=== PATIENT | female | born 1970 | race Caucasian/White ===

== ENCOUNTER 2017-09-09 19:43 | Emergency (ER) | payer SELFPAY ==
[~2017-09-09] VITALS: Ht 167.6 cm; Wt 81.6 kg
[~2017-09-09 19:43] MED LIST: AC500T PO; ACET650T52 PO; ACHD5005 PO; CYCL10TA9 PO; HYDR-3714 PO; PRD20T PO; PRED20TA PO; TRAM-21 PO; TRAM50TA2 PO; TRM50T PO; VALE1POW PO
--- OUTSIDE RECORDS SUMMARY | 2017-09-09 19:50 | XMS REPORT ---
Author Author EMMANUEL HALE [facility] Address [address] [place] [address] Care Team Providers Care Mail Order Clerk Name Role Phone EMMANUEL HALE Unavailable PROBLEMS Type Condition ICD9-CM Code ASU14-RH Code Onset Dates Condition Status SNOMED Code Problem Anxiety state, unspecified 300.00 Active 817432486 Problem Sciatica 724.3 Active 69390307 Problem Dysuria 788.1 Active 00120076 ALLERGIES Substance Reaction Event Type Date Status NSAIDS hives Non Drug Allergy May, Active SOCIAL HISTORY No smoking Hx information available PLAN OF CARE Activity Details Follow Up prn. if not improving with PCP or reg follow up Reason: VITAL SIGNS Height 66 in 2016-05-12 Weight 196.5 lbs 2016-05-12 Temperature 97.0 degrees Fahrenheit 2016-05-12 Heart Rate 82 bpm 2016-05-12 Respiratory Rate 20 2016-05-12 BMI 31.71 kg/m2 2016-05-12 Blood pressure systolic 110 mmHg 2016-05-12 Blood pressure diastolic 70 mmHg 2016-05-12 MEDICATIONS Medication Instructions Dosage Frequency Start Date End Date Duration Status Sudafed PE Maximum Strength 10 mg Orally every 4-6 hours as needed 1 tablet as needed May, Active Augmentin 875-125 MG Orally every 12 hrs 1 tablet 12h May,May 10 day(s) Active RESULTS No Results PROCEDURES Procedure Date Ordered Related Diagnosis Body Site Office Visit, Est Pt., Level 3 May 12, 2016 IMMUNIZATIONS No Known Immunizations
--- OUTSIDE RECORDS SUMMARY | 2017-09-09 19:50 | XMS REPORT ---
Author Author ALEXANDRO Wang [facility] Address [address] [place] [address] Care Team Providers Care Pipe Connector Name Role Phone [email or web address] ALEXANDRO Unavailable PROBLEMS Type Condition ICD9-CM Code OBM25-CK Code Onset Dates Condition Status SNOMED Code Problem Anxiety state, unspecified 300.00 Active 960056039 Problem Sciatica 724.3 Active 10070945 Problem Dysuria 788.1 Active 65660892 ALLERGIES Substance Reaction Event Type Date Status NSAIDS hives Non Drug Allergy Nov, Active ENCOUNTERS Encounter Location Date Diagnosis [facility] IN [facility] [id number] [place] [phone] Nov, Dysuria R30.0 and Acute cystitis N30.00 [facility] [id number] [place] [address] May, Acute non-recurrent maxillary sinusitis J01.00 [facility] [id number] [place] [phone] Jul, [facility] [id number] [place] [address] Jul, [facility] [id number] [place] [address] Apr, [facility] [id number] [place] [address] Apr, [facility] [id number] [place] [address] Oct, [facility] [id number] [place] [address] Oct, [facility] [address] [id number] [place] [address] Sep, [facility] [address] [id number] [place] [address] Sep, [facility] [place] [facility] [address] [id number] [place] [address] August, [facility] [address] [id number] [place] [address] August, [facility] [place] [facility] [address] [id number] [place] [address] Jul, [facility] [address] [id number] [place] [address] Jul, [facility] [address] [id number] [place] [address] Oct, [facility] [place] [facility] [address] [id number] [place] [address] Oct, [facility] [address] [id number] [place] [address] August, [facility] [address] [id number] [place] [address] August, [facility] [address] [id number] [place] [address] Jul, [facility] [place] [facility] [address] [id number] [place] [address] Jun, [facility] [place] [facility] [address] [id number] [place] [address] Jun, [facility] [place] [facility] [address] [id number] [place] [address] Jul, [facility] [place] [facility] [address] [id number] [place] [address] Mar, [facility] [place] [facility] [address] [id number] [place] [address] Feb, [facility] [address] [facility] [id number], [place] [address] Feb, [facility] [address] [facility] [id number], [place] [address] Feb, [facility] [address] [facility] [id number], [place] [address] Jan, [facility] [id number] [address] Jan, [facility] [address] [facility] [id number], [place] [address] Nov, [facility] [address] [id number], [place] [address] Sep, IMMUNIZATIONS No Known Immunizations SOCIAL HISTORY Never Assessed REASON FOR VISIT Possible UTI, Buring with urination and frequency. DENYS [place]. PLAN OF CARE Activity Details Follow Up prn Reason: VITAL SIGNS Height 66 in 2016-11-08 Weight 194.2 lbs 2016-11-08 Temperature 98 degrees Fahrenheit 2016-11-08 Heart Rate 92 bpm 2016-11-08 Respiratory Rate 18 2016-11-08 BMI 31.34 kg/m2 2016-11-08 Blood pressure systolic 132 mmHg 2016-11-08 Blood pressure diastolic 78 mmHg 2016-11-08 MEDICATIONS Medication Instructions Dosage Frequency Start Date End Date Duration Status Cipro 250 mg Orally every 12 hrs 1 tablet 12h Nov, Nov, 3 days Active RESULTS No Results PROCEDURES No Known procedures INSTRUCTIONS MEDICATIONS ADMINISTERED No Known Medications MEDICAL (GENERAL) HISTORY Type Description Date Surgical History Tubal Ligation 1999
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
--- NOTE | 2017-09-09 21:12 | ED Back Pain ---
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 DENIES RADIATION OR NUMBNESS/TINGLING Nursing Sepsis Screen: No Definite Risk (LAURO ESCOTO STUDENT) History of Present Illness Date Seen by Provider: Sep 09, 2017 Time Seen by Provider: 21:06 Initial Comments Patient to the emergency room with complaints of low back pain. 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 Said she took off 3 days this week and attempted to return back to work today and the pain was to intense and had to go home early. She denies any radiculopathy, numbness, tingling, saddle paresthesia, or loss of bowel or bladder and reports taking Tylenol for pain with minimal relief. Location: Lumbar Spine Timing/Duration: 3-4 Days Severity: Moderate Pain/Injury Location: Back Method of Injury: Other Modifying Factors: Improves With Cold Therapy (and heat), Improves With Immobilization (lifting); Worse With Jarring, Worse With Movement Associated Symptoms: denies symptoms, muscle spasms; No fever, No weakness, No numbness in legs/feet, No tingling in legs/feet, No sensory/motor loss; lower back pain; No loss of bladder control, No loss of bowel control (LAURO ESCOTO STUDENT) Associated Symptoms: muscle spasms (HADLEY MESSINA MD) Allergies and Home Medications Allergies Coded Allergies: aspirin (Verified Allergy, Severe, HIVES, 02/06/12) ibuprofen (Verified Allergy, Severe, HIVES, 02/06/12) cyclobenzaprine (Unverified Allergy, Intermediate, 09/01/14) naproxen sodium (Verified Allergy, Unknown, 09/01/14) Patient Home Medication List Home Medication List Reviewed: Yes (LAURO ESCOTO STUDENT) Constitutional: see HPI EENTM: no symptoms reported Respiratory: no symptoms reported Cardiovascular: no symptoms reported Gastrointestinal: no symptoms reported Genitourinary: no symptoms reported Musculoskeletal: see HPI, back pain, muscle pain, muscle twitching Skin: no symptoms reported Psychiatric/Neurological: No Symptoms Reported (LAURO ESCOTO STUDENT) All Other Systems Reviewed Negative Unless Noted: Yes (LAURO ESCOTO STUDENT) Negative Unless Noted: Yes (HADLEY MESSINA MD) Past Socnsva-Vinzjf-Tngbvf Hx Past Med/Social Hx: Reviewed Nursing Past Med/Soc Hx (LAURO ESCOTO) Past Med/Social Hx: Reviewed Nursing Past Med/Soc Hx (HADLEY MESSINA MD) Patient Social History Alcohol Use: Denies Use Recreational Drug Use: No Smoking Status: Current Everyday Smoker Recent Foreign Travel: No Contact w/Someone Who Travel: No Recent Infectious Disease Expo: No Physical Abuse: No Sexual Abuse: No (LAURO ESCOTO STUDENT) Immunizations Up To Date Tetanus Booster (TDap): Unknown Date of Influenza Vaccine: Jan 08, 2014 (LAURO ESCOTO) Seasonal Allergies Seasonal Allergies: No (LAURO ESCOTO STUDENT) Past Medical History Surgeries: Yes Parathyroidectomy, Tubal Ligation Respiratory: No Cardiac: No Neurological: No Reproductive Disorders: No 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 Gastrointestinal: No Musculoskeletal: No Endocrine: Yes (Gestational diabetes) Cancer: No Psychosocial: No Nursing Suicide Risk Score: 0 Integumentary: No Blood Disorders: No (LAURO ESCOTO STUDENT) Family Medical History Reviewed Nursing Family Hx (LAURO ESCOTO) Reviewed Nursing Family Hx (HADLEY MESSINA MD) Diabetes (LAURO ESCOTO STUDENT) Physical Exam Vital Signs Vital Signs - First Documented 09/09/17 20:17 Temp 98.1 Pulse 71 Resp 18 B/P (MAP) 136/68 (90) Pulse Ox 97 O2 Delivery Room Air (HADLEY MESSINA MD) Vital Signs Capillary Refill : Less Than 3 Seconds (LAURO ESCOTO STUDENT) General Appearance: No Apparent Distress, WD/WN HEENT: PERRL/EOMI, TMs Normal, Normal ENT Inspection, Pharynx Normal Neck: Full Range of Motion, Normal Inspection, Non Tender, Supple Cardiovascular: Regular Rate, Rhythm, No Edema, No Gallop, No JVD, No Murmur, Normal Peripheral Pulses Respiratory: Chest Non Tender, Lungs Clear, Normal Breath Sounds, No Accessory Muscle Use Peripheral Pulses: 2+ Dorsalis Pedis (R), 2+ Left Dors-Pedis (L), 2+ Radial Pulses (R), 2+ Radial Pulses (L) Gastrointestinal: Normal Bowel Sounds, No Organomegaly, No Pulsatile Mass, Non Tender, Soft Back: Normal Inspection, Decreased Range of Motion, Muscle Spasm, Vertebral Tenderness (lower vertebral tenderness on palpation.) Extremity: Normal Capillary Refill, Normal Inspection, Normal Range of Motion, Non Tender, No Calf Tenderness Neurologic/Psychiatric: Alert, Oriented x3, Normal Mood/Affect Skin: Normal Color, Warm/Dry Lymphatic: No Adenopathy (LAURO ESCOTO STUDENT) General Appearance: WD/WN, Mild Distress (low back pain) Cardiovascular: Regular Rate, Rhythm, No Murmur Respiratory: Lungs Clear, Normal Breath Sounds Back: Other (tender at the SI joint on the right with muscle spasms noted on the right side.) Neurologic/Psychiatric: No Motor Weakness, No Sensory Deficit (HADLEY MESSINA MD) Progress/Results/Core Measures Results/Orders My Orders Orders - HADLEY MESSINA MD Hydrocodone/Apap 7.5/325 Tab (Lortab 7. (09/09/17 21:45) Prednisone Tablet (Deltasone Tablet) (09/09/17 21:45) (HADLEY MESSINA MD) Medications Given in ED Current Medications Medications Dose Ordered Sig/Carlene Route Start Time Stop Time Status Last Admin Dose Admin Acetaminophen/ Hydrocodone Bitart 1 ea ONCE ONCE PO 09/09/17 21:45 09/09/17 21:46 DC 09/09/17 21:56 1 EA Prednisone 40 mg ONCE ONCE PO 09/09/17 21:45 09/09/17 21:46 DC 09/09/17 21:56 40 MG (HADLEY MESSINA MD) Vital Signs/I&O 09/09/17 20:17 Temp 98.1 Pulse 71 Resp 18 B/P (MAP) 136/68 (90) Pulse Ox 97 O2 Delivery Room Air (HADLEY MESSINA MD) Blood Pressure Mean: 90 Progress Progress Note : Progress Note I have seen and evaluated patient and agree with above except as indicated. I have reviewed and agree with the plan of care. Patient is here with low back pain mostly on the right but a little on the left. Apparently initial incident occurred 3 days ago and she took a few days off work. She went back to work today and was lifting again when the pain worsened and she had to leave and came here. Apparently, her work states that she left prior to doing the paperwork and so this will not be a Worker's Comp. case. Patient was given hydrocodone 7.5 and prednisone 40 mg by mouth. This did help out her pain. We did discuss zljq-ydl-cwtqkzj options. We will do brief prescription of both of the meds listed above and she will use lidocaine patches that she'll get over- the-counter. Discharged home with return precautions. Patient verbalize understanding instructions and agreement with plan. Further workup outpatient as needed and as indicated. (HADLEY MESSINA MD) Departure Impression Primary Impression: Back strain Qualified Codes: S39.012A - Strain of muscle, fascia and tendon of lower back , initial encounter Additional Impression: Back pain Qualified Codes: M54.5 - Low back pain Disposition: 01 HOME, SELF-CARE Condition: Improved Departure-Patient Inst. Decision time for Depature: 22:22 (LAURO ESCOTO STUDENT) Referrals: CELENA SIBLEY DO (PCP/Family) Primary Care Physician Patient Instructions: Lumbar Muscle Strain (DC) Add. Discharge Instructions: All discharge instructions reviewed with patient and/or family. Voiced understanding. Take medications as directed. Follow-up with your doctor early this week for recheck and further evaluation including possibility of imaging as indicated. You may use bnwd-rhc-csngazt lidocaine patch to area of concern as discussed. Abrasions of this include icy hot with lidocaine or salonpas lidocaine. Return for worse pain, fever, vomiting, weakness, breathing problems or other concerns as needed. Scripts Prednisone (Prednisone) 20 Mg Tab 40 MG PO DAILY, #12 TAB 0 Refills Prov: HADLEY MESSINA MD 09/09/17 Hydrocodone Bit/Acetaminophen (Hydrocodone/Acetaminophen 5/325mg Tablet) 1 Tab Tab 1-2 EACH PO Q6H PRN for PAIN-MODERATE, #12 TAB 0 Refills Prov: HADLEY MESSINA MD 09/09/17 Work/School Note: Work Release Form Date Seen in the Emergency Department: Sep 09, 2017 Return to Work: Sep 11, 2017 Restrictions: No Restrictions Copy Copies To 1: CELENA SIBLEY TRAVIS STUDENT Sep 09, 2017 21:12 HADLEY MESSINA MD Sep 09, 2017 22:28
[2017-09-09] MEDS ORDERED: HYDROcodone/APAP 7.5 MG/325 MG (LORTAB, LORCET PLUS) TABLET PO ONE (21:45)
[2017-09-09] MEDS ORDERED: predniSONE 20 MG TAB PO ONE (21:45)
[2017-09-09] MEDS ORDERED: PRD20T PO (22:46)
[2017-09-09] MEDS ORDERED: ACHD5005 PO (22:46)
[2017-09-09 22:57] VITALS: BP 136/68
== END 2017-09-09 22:56 | disposition home or self-care (01) ==
LOC: EDUNIT# 19:43 → ER 19:45
DX: S39.012A Strain of muscle, fascia and tendon of lower back, initial encounter (principal); F17.210 Nicotine dependence, cigarettes, uncomplicated; Z86.32 Personal history of gestational diabetes; Z98.51 Tubal ligation status; Z88.6 Allergy status to analgesic agent; Z88.8 Allergy status to other drugs, medicaments and biological substances; F17.200 Nicotine dependence, unspecified, uncomplicated; X50.0XXA Overexertion from strenuous movement or load, initial encounter; Y99.0 Civilian activity done for income or pay
CPT/HCPCS: 99284

== ENCOUNTER 2019-10-18 07:09 | Day surgery (SDC) | payer SELFPAY ==
[2019-10-18] VITALS (10 sets, daily range): BP systolic 126–145; BP diastolic 68–93
[~2019-10-18] VITALS: Ht 167 cm; Wt 9.1 kg
[2019-10-18] MEDS ORDERED: fentaNYL INJECTION 100 MCG/2 ML AMP ONE ×3 (07:23→11:27)
[2019-10-18] MEDS ORDERED: LACTATED RINGERS 1,000 ML IV ONE (07:23)
[2019-10-18] MEDS ORDERED: ONDANSETRON 4 MG/2 ML (SDV) Z0FRAN ONE ×2 (07:23→12:49)
[2019-10-18] MEDS ORDERED: fentaNYL INJECTION 100 MCG/2 ML AMP IVP STA (07:25)
[2019-10-18] MEDS ORDERED: LACTATED RINGERS 1,000 ML IV STA (07:25)
[2019-10-18] MEDS ORDERED: ONDANSETRON 4 MG/2 ML (SDV) Z0FRAN IVP ONE (07:30)
[2019-10-18 07:31] LABS: BASOPHILS % (AUTO) 0 % (0-10); EOSINOPHILS % (AUTO) 0 % (0-10); HEMATOCRIT 46 % (35-52); HEMOGLOBIN 15.9 G/DL (11.5-16.0); LYMPHOCYTES # (AUTO) 1.3 X 10^3 (1.0-4.0); LYMPHOCYTES % (AUTO) 6 % (12-44); MEAN CORPUSCULAR HEMOGLOBIN 31 PG (25-34); MEAN CORPUSCULAR HGB CONC 35 G/DL (32-36); MEAN CORPUSCULAR VOLUME 87 FL (80-99); MEAN PLATELET VOLUME 11.2 FL (7.4-10.4); MONOCYTES # (AUTO) 0.7 X 10^3 (0.0-1.0); MONOCYTES % (AUTO) 3 % (0-12); NEUTROPHILS # (AUTO) 18.7 X 10^3 (1.8-7.8); NEUTROPHILS % (AUTO) 91 % (42-75); PLATELET COUNT 201 10^3/uL (130-400); RED CELL DISTRIBUTION WIDTH 13.4 % (10.0-14.5); WHITE BLOOD COUNT 20.6 10^3/uL (4.3-11.0)
[2019-10-18 07:44] LABS: ALBUMIN 4.1 GM/DL (3.2-4.5); CHLORIDE 100 MMOL/L (98-107); POTASSIUM 3.8 MMOL/L (3.6-5.0); SODIUM 130 MMOL/L (135-145)
[2019-10-18 07:46] LABS: CALCIUM 10.2 MG/DL (8.5-10.1)
[2019-10-18 07:47] LABS: GLUCOSE 113 MG/DL (70-105)
[2019-10-18 07:48] LABS: BILIRUBIN,TOTAL 0.5 MG/DL (0.1-1.0); CARBON DIOXIDE 17 MMOL/L (21-32)
[2019-10-18 07:50] LABS: ALKALINE PHOSPHATASE 90 U/L (40-136)
[2019-10-18 07:51] LABS: CREATININE SERUM 0.84 MG/DL (0.60-1.30); GFR ESTIMATED > 60
[2019-10-18 07:52] LABS: BUN/CREATININE RATIO 11
[2019-10-18 07:53] LABS: ALANINE AMINOTRANSFERASE 15 U/L (0-55)
[2019-10-18 07:54] LABS: LIPASE < 4 U/L (8-78)
[2019-10-18 08:04] LABS: BAND NEUTROPHILS 8 %; BASOPHILS % (MANUAL) 0 %; EOSINOPHILS % (MANUAL) 0 %; LYMPHOCYTES % (MANUAL) 8 %; MONOCYTES % (MANUAL) 2 %; NEUTROPHILS % (MANUAL) 82 %; RBC MORPH NORMAL
[2019-10-18 08:26] LABS: BILIRUBIN,URINE NEGATIVE (NEGATIVE); CLARITY,URINE CLEAR; COLOR,URINE YELLOW; GLUCOSE, URINE (UA) NEGATIVE (NEGATIVE); KETONES,URINE TRACE (NEGATIVE); LEUKOCYTE ESTERASE ,URINE NEGATIVE (NEGATIVE); NITRITE,URINE NEGATIVE (NEGATIVE); PROTEIN,URINE 1+ (NEGATIVE)
--- NOTE | 2019-10-18 08:35 | Diagnostic Imaging Report ---
PROCEDURE: US Gallbladder. TECHNIQUE: Multiple real-time grayscale images were obtained over the right upper quadrant in various projections. INDICATION: Right upper quadrant pain. Liver is upper limits of normal in size at 18 cm. No discrete liver mass is identified. Portal vein is patent and shows normal direction of flow. Gallbladder appears to contain multiple stones. In addition, gallbladder wall is thickened 5 mm. No significant biliary ductal dilatation is seen. Pancreas was obscured by bowel gas. Aorta is non-aneurysmal proximally. Mid and distal aspect was not visualized. The upper IVC appears to be patent. Right kidney is without calculi or hydronephrosis. There is no ascites. IMPRESSION: 1. Cholelithiasis with gallbladder wall thickening, suspicious for acute cholecystitis. Dictated by: Dictated on workstation # [id number]
[2019-10-18 08:37] LABS: BACTERIA,URINE FEW /HPF; RBC,URINE 0-2 /HPF; WBC,URINE 0-2 /HPF
[2019-10-18] MEDS ORDERED: PIPERACILLIN SODIUM/TAZOBACTAM 4.5 GM in NS (IVPB) 100 ML IV ONE (08:45)
[2019-10-18] MEDS ORDERED: fentaNYL INJECTION 100 MCG/2 ML AMP IVP ONE (09:15)
--- NOTE | 2019-10-18 09:28 | ED Abdominal Pain ---
General Chief Complaint: Abdominal/GI Problems Stated Complaint: ABD PAIN Nursing Triage Note: PT CO OF ABD PAIN R UPPER ABD SINCE , PT STATES HAS HAD N/V/D Sepsis Screen: No Definite Risk Source of Information: Patient Exam Limitations: No Limitations History of Present Illness Date Seen by Provider: Oct 18, 2019 Time Seen by Provider: 07:20 Initial Comments Here with report of right upper quadrant abdominal pain for the last 2 days. Associated with nausea, vomiting and diarrhea. She is able to take in water but otherwise not eat. Denies fever but states that she feels poorly. Denies blood in her urine or stools. He denies upper respiratory symptoms. Timing/Duration: 2-3 Days Severity/Quality: Moderate, Severe, Aching Location: RUQ Radiation: Back Activities at Onset: None Modifying Factors: Worsens With Eating Associated Symptoms: Back Pain; No Chest Pain, No Diaphoresis, No Fever/Chills; Nausea/Vomiting; No Shortness of Air, No Weakness Allergies and Home Medications Allergies Coded Allergies: aspirin (Verified Allergy, Severe, HIVES, 02/06/12) ibuprofen (Verified Allergy, Severe, HIVES, 02/06/12) cyclobenzaprine (Unverified Allergy, Intermediate, 09/01/14) naproxen sodium (Verified Allergy, Unknown, 09/01/14) Home Medications No Active Prescriptions or Reported Meds Patient Home Medication List Home Medication List Reviewed: Yes Review of Systems Review of Systems Constitutional: see HPI; No chills (Heart regular), No fever EENTM: No Nose Congestion, No Throat Pain Respiratory: Denies Cough, Denies Shortness of Air Cardiovascular: Denies Chest Pain Gastrointestinal: Abdominal Pain, Diarrhea, Nausea; Denies Rectal Bleeding; Vomiting Genitourinary: Denies Frequency, Denies Hematuria, Denies Pain Musculoskeletal: no symptoms reported Skin: no symptoms reported All Other Systems Reviewed Negative Unless Noted: Yes Past Cqsmhem-Zabzrc-Zslagx Hx Past Med/Social Hx: Reviewed Nursing Past Med/Soc Hx Patient Social History Alcohol Use: Denies Use Recreational Drug Use: Yes (POT) Smoking Status: Current Everyday Smoker Type Used: Cigarettes Recent Foreign Travel: No Contact w/Someone Who Travel: No Recent Infectious Disease Expo: No Recent Hopitalizations: No Physical Abuse: No Sexual Abuse: No Immunizations Up To Date Tetanus Booster (TDap): Unknown Date of Influenza Vaccine: Jan 08, 2014 Seasonal Allergies Seasonal Allergies: No Past Medical History Surgeries: Yes Parathyroidectomy, Tubal Ligation Respiratory: No Cardiac: No Neurological: No : No Last Menstrual Period: Sep 27, 2019 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 oz. 81.265292tm; 32.00 BMI Method:Stated General Appearance: WD/WN, no apparent distress HEENT: PERRL/EOMI, pharynx normal Respiratory: lungs clear, normal breath sounds Cardiovascular: no murmur, tachycardia Gastrointestinal: soft; No distended; guarding; No rebound; tenderness (Right upper quadrant) Extremities: non-tender, normal inspection Back: normal inspection, no CVA tenderness, no vertebral tenderness Neurologic/Psychiatric: alert, oriented x 3 Skin: normal color, warm/dry Progress/Results/Core Measures Results/Orders Lab Results Laboratory Tests Test 10/18/19 07:15 10/18/19 07:20 Range/Units Urine Color YELLOW Urine Clarity CLEAR Urine pH 6.0 5-9 Urine Specific [place] <=1.005 1.016-1.022 Urine Protein 1+ H NEGATIVE Urine Glucose (UA) NEGATIVE NEGATIVE Urine Ketones TRACE H NEGATIVE Urine Nitrite NEGATIVE NEGATIVE Urine Bilirubin NEGATIVE NEGATIVE Urine Urobilinogen 0.2 < = 1.0 MG/DL Urine Leukocyte Esterase NEGATIVE NEGATIVE Urine RBC (Auto) 3+ H NEGATIVE Urine RBC 0-2 /HPF Urine WBC 0-2 /HPF Urine Squamous Epithelial Cells 5-10 /HPF Urine Crystals NONE /LPF Urine Bacteria FEW H /HPF Urine Casts NONE /LPF Urine Mucus NEGATIVE /LPF Urine Culture Indicated NO White Blood Count 20.6 H 4.3-11.0 10^3/uL Red Blood Count 5.22 4.35-5.85 10^6/uL Hemoglobin 15.9 11.5-16.0 G/DL Hematocrit 46 35-52 % Mean Corpuscular Volume 87 80-99 FL Mean Corpuscular Hemoglobin 31 25-34 PG Mean Corpuscular Hemoglobin Concent 35 32-36 G/DL Red Cell Distribution Width 13.4 10.0-14.5 % Platelet Count 201 130-400 10^3/uL Mean Platelet Volume 11.2 H 7.4-10.4 FL Neutrophils (%) (Auto) 91 H 42-75 % Lymphocytes (%) (Auto) 6 L 12-44 % Monocytes (%) (Auto) 3 0-12 % Eosinophils (%) (Auto) 0 0-10 % Basophils (%) (Auto) 0 0-10 % Neutrophils # (Auto) 18.7 H 1.8-7.8 X 10^3 Lymphocytes # (Auto) 1.3 1.0-4.0 X 10^3 Monocytes # (Auto) 0.7 0.0-1.0 X 10^3 Eosinophils # (Auto) 0.0 0.0-0.3 10^3/uL Basophils # (Auto) 0.0 0.0-0.1 10^3/uL Neutrophils % (Manual) 82 % Lymphocytes % (Manual) 8 % Monocytes % (Manual) 2 % Eosinophils % (Manual) 0 % Basophils % (Manual) 0 % Band Neutrophils 8 % Blood Morphology Comment NORMAL Sodium Level 130 L 135-145 MMOL/L Potassium Level 3.8 3.6-5.0 MMOL/L Chloride Level 100 98-107 MMOL/L Carbon Dioxide Level 17 L 21-32 MMOL/L Anion Gap 13 5-14 MMOL/L Blood Urea Nitrogen 9 7-18 MG/DL Creatinine 0.84 0.60-1.30 MG/DL Estimat Glomerular Filtration Rate > 60 BUN/Creatinine Ratio 11 Glucose Level 113 H 70-105 MG/DL Calcium Level 10.2 H 8.5-10.1 MG/DL Corrected Calcium 10.1 8.5-10.1 MG/DL Total Bilirubin 0.5 0.1-1.0 MG/DL Aspartate Amino Transf (AST/SGOT) 12 5-34 U/L Alanine Aminotransferase (ALT/SGPT) 15 0-55 U/L Alkaline Phosphatase 90 40-136 U/L C-Reactive Protein High Sensitivity 48.25 H 0.00-0.50 MG/DL Total Protein 8.0 6.4-8.2 GM/DL Albumin 4.1 3.2-4.5 GM/DL Lipase < 4 L 8-78 U/L My Orders Orders - HADLEY MESSINA MD Fentanyl Injection (Sublimaze Injection (10/18/19 07:23) Lactated Ringers (Lr 1000 Ml Iv Solution (10/18/19 07:23) Ondansetron Injection (Zofran Injectio (10/18/19 07:23) Ondansetron Injection (Zofran Injectio (10/18/19 07:30) Lactated Ringers (Lr 1000 Ml Iv Solution (10/18/19 07:25) Ed Iv/Invasive Line Start (10/18/19 07:25) Fentanyl Injection (Sublimaze Injection (10/18/19 07:25) Cbc With Automated Diff (10/18/19 07:25) Comprehensive Metabolic Panel (10/18/19 07:25) Hs C Reactive Protein (10/18/19 07:25) Lipase (10/18/19 07:25) Ua Culture If Indicated (10/18/19 07:25) Manual Differential (10/18/19 07:20) Us Gallbladder [id number] (10/18/19 07:53) Piperacillin Sodium/Tazobactam (Zosyn Vi (10/18/19 08:45) Fentanyl Injection (Sublimaze Injection (10/18/19 09:15) Medications Given in ED Current Medications Medications Dose Ordered Sig/Carlene Route Start Time Stop Time Status Last Admin Dose Admin Fentanyl Citrate 50 mcg ONCE ONCE IVP 10/18/19 09:15 10/18/19 09:16 DC 10/18/19 09:00 50 MCG Ondansetron HCl 4 mg ONCE ONCE IVP 10/18/19 07:30 10/18/19 07:31 DC 10/18/19 07:27 4 MG Piperacillin Sod/ Tazobactam Sod 4.5 gm/Sodium Chloride 100 ml @ 200 mls/hr ONCE ONCE IV 10/18/19 08:45 10/18/19 09:14 DC 10/18/19 08:49 200 MLS/HR Vital Signs/I&O 10/18/19 07:15 Temp 36.7 Pulse 97 Resp 18 B/P (MAP) 137/63 (87) Pulse Ox 97 Blood Pressure Mean: 87 Progress Progress Note : Progress Note Seen and evaluated. IV, labs, UA, LR 1 L bolus, fentanyl 75 g IV and Zofran 4 mg IV ordered. Monitor patient. Pain consistent with gallbladder concerns. Ultrasound gallbladder ordered. Monitor patient. 0845: Ultrasound concerning for acute cholecystitis. I did discuss the case with Dr. Pappas. He will see the patient in the ER. We will maintain nothing by mouth status and he will likely take her to surgery today. Zosyn 4.5 g IV ordered. All findings and concerns dis cussed with patient who agreed with plan. Diagnostic Imaging Diagonstic Imaging: Ultrasound Plain Films/CT/US/NM/MRI: abdomen Comments [facility], [place] NAME: CRUZ RIGGINS [facility] REC#: [id number] PT STATUS: REG ER : 1970 PHYSICIAN: HADLEY MESSINA MD ADMIT DATE: 10/18/19/ER Draft Date of Exam:10/18/19 US GALLBLADDER [id number] PROCEDURE: US Gallbladder. TECHNIQUE: Multiple real-time grayscale images were obtained over the right upper quadrant in various projections. INDICATION: Right upper quadrant pain. Liver is upper limits of normal in size at 18 cm. No discrete liver mass is identified. Portal vein is patent and shows normal direction of flow. Gallbladder appears to contain multiple stones. In addition, gallbladder wall is thickened 5 mm. No significant biliary ductal dilatation is seen. Pancreas was obscured by bowel gas. Aorta is non-aneurysmal proximally. Mid and distal aspect was not visualized. The upper IVC appears to be patent. Right kidney is without calculi or hydronephrosis. There is no ascites. IMPRESSION: 1. Cholelithiasis with gallbladder wall thickening, suspicious for acute cholecystitis. Dictated on workstation # [id number] Dict: 10/18/19 0830 Trans: 10/18/[address] [facility] [id number] Interpreted by: MURTAZA BUENO MD Electronically signed by: Departure Communication (Admissions) Time/Spoke to Admitting Phy: 08:45 Impression Primary Impression: Acute cholecystitis due to biliary calculus Disposition: ADMITTED INPATIENT Condition: Stable Admissions Decision to Admit Reason: Admit from ER (General) Decision to Admit/Date: Oct 18, 2019 Time/Decision to Admit Time: 08:45 Departure-Patient Inst. Referrals: CELENA SIBLEY DO (PCP/Family) Primary Care Physician Scripts No Active Prescriptions or Reported Meds HADLEY MESSINA MD Oct 18, 2019 09:27
--- NOTE | 2019-10-18 09:35 | NUR ---
DR AGUILAR HERE TO SEE PT
--- NOTE | 2019-10-18 10:27 | NUR ---
PT STATES HAS BEEN NOT HAD ANYTHING BY MOUTH SINCE 0500 THIS AM. STATES DRANK A CUP OF WATER
--- NOTE | 2019-10-18 10:44 | NUR ---
COVID SWAB COMPLETED
[2019-10-18] MEDS ORDERED: BUP/EPI 0.5% 1:200,000 (SENSORCAINE) 30 ML VIAL ONE (10:52)
[2019-10-18] MEDS ORDERED: IOPAMIDOL 61% 30 ML (ISOVUE 300) VIAL ONE (10:52)
[2019-10-18] MEDS ORDERED: ceFAZolin 2 GM IV Premixed 50 ML ONE (11:10)
--- NOTE | 2019-10-18 11:26 | Consultation - Surgery ---
History of Present Illness History of Present Illness Patient Consulted On(roldan/time) 10/18/19 11:20 Date Seen by Provider: Oct 18, 2019 Time Seen by Provider: 10:21 History of Present Illness Consult requested by Dr. Benitez for ruq abdominal pain, seen and evaluated in ED. Patient is a 49 year old female with sharp, achy pain in ruq. Rates pain at 10 at worse. Having nausea and vomiting. Has been going on for about 3 days. Unable to eat, no appetite. Food made her worse. Pain medication today, has made better. Tried smoking marijuana yesterday but just made her cough more. Had u/s done demonstrating gallstones and thickened wall. Denies fever sweats chills shortness of breath or chest pain. Allergies and Home Medications Allergies Coded Allergies: aspirin (Verified Allergy, Severe, HIVES, 02/06/12) ibuprofen (Verified Allergy, Severe, HIVES, 02/06/12) cyclobenzaprine (Unverified Allergy, Intermediate, 09/01/14) naproxen sodium (Verified Allergy, Unknown, 09/01/14) Home Medications No Active Prescriptions or Reported Meds Patient Home Medication List Home Medication List Reviewed: Yes Past Wawvzwk-Gbzqwd-Efgrul Hx Patient Social History Alcohol Use: Denies Use Recreational Drug Use: Yes (POT) Smoking Status: Current Everyday Smoker Type Used: Cigarettes Recent Foreign Travel: No Contact w/Someone Who Travel: No Recent Infectious Disease Expo: No Recent Hopitalizations: No Immunizations Up To Date Tetanus Booster (TDap): Unknown Date of Influenza Vaccine: Jan 08, 2014 Seasonal Allergies Seasonal Allergies: No Surgeries History of Surgeries: Yes Surgeries: Parathyroidectomy, Tubal Ligation Respiratory History of Respiratory Disorde: No Cardiovascular History of Cardiac Disorders: No Neurological History of Neurological Disord: No Reproductive System : No Hx 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 Gastrointestinal History of Gastrointestinal Di: No Musculoskeletal History of Musculoskeletal Dis: No Endocrine History of Endocrine Disorders: Yes (Gestational diabetes) Cancer History of Cancer: No Psychosocial History of Psychiatric Problem: No Integumentary History of Skin or Integumenta: No Blood Transfusions History of Blood Disorders: No Reviewed Nursing Assessment Reviewed/Agree w Nursing PMH: Yes Family Medical History Significant Family History: No Pertinent Family Hx, Diabetes Review of Systems-General Constitutional: No fever, No weakness EENTM: No hearing loss, No ear pain Respiratory: cough; No hemoptysis, No short of breath Cardiovascular: No chest pain, No edema, No palpitations Gastrointestinal: RUQ, abdominal pain (RUQ), nausea, vomiting Genitourinary: No decreased output, No discharge Musculoskeletal: No back pain, No joint pain Skin: No change in color, No change in hair/nails Psychiatric/Neurological: Denies Anxiety, Denies Depressed All Other Systems Reviewed Negative Unless Noted: Yes (Negative excepted noted.) Physical Exam-General Problems Physical Exam Vital Signs Vital Signs - First Documented 10/18/19 07:15 Temp 36.7 Pulse 97 Resp 18 B/P (MAP) 137/63 (87) Pulse Ox 97 Capillary Refill : Less Than 3 Seconds General Appearance: no apparent distress, obese HEENT: PERRL/EOMI, normal ENT inspection Neck: non-tender, supple, normal inspection Respiratory: chest non-tender, no respiratory distress, no accessory muscle use Cardiovascular: regular rate, rhythm Gastrointestinal: soft; No guarding, No rebound; tenderness (ruq) Rectal: deferred Back: no CVA tenderness, no vertebral tenderness Extremities: normal range of motion, non-tender, normal inspection, no pedal edema Neurologic/Psychiatric: nicker and breaker II-XII nml as tested, no motor/sensory deficits, normal mood/affect, oriented x 3 Skin: normal color, warm/dry Lymphatic: no adenopathy Data Review Labs Laboratory Tests 10/18/19 07:15: Urine Color YELLOW, Urine Clarity CLEAR, Urine pH 6.0, Urine Specific [place] <=1.005, Urine Protein 1+H, Urine Glucose (UA) NEGATIVE, Urine Ketones TRACEH, Urine Nitrite NEGATIVE, Urine Bilirubin NEGATIVE, Urine Urobilinogen 0.2, Urine Leukocyte Esterase NEGATIVE, Urine RBC (Auto) 3+H, Urine RBC 0-2, Urine WBC 0-2, Urine Squamous Epithelial Cells 5-10, Urine Crystals NONE, Urine Bacteria FEWH, Urine Casts NONE, Urine Mucus NEGATIVE, Urine Culture Indicated NO 10/18/19 07:20: White Blood Count 20.6H, Red Blood Count 5.22, Hemoglobin 15.9, Hematocrit 46, Mean Corpuscular Volume 87, Mean Corpuscular Hemoglobin 31, Mean Corpuscular Hemoglobin Concent 35, Red Cell Distribution Width 13.4, Platelet Count 201, Mean Platelet Volume 11.2H, Neutrophils (%) (Auto) 91H, Lymphocytes (%) (Auto) 6L, Monocytes (%) (Auto) 3, Eosinophils (%) (Auto) 0, Basophils (%) (Auto) 0, Neutrophils # (Auto) 18.7H, Lymphocytes # (Auto) 1.3, Monocytes # (Auto) 0.7, Eosinophils # (Auto) 0.0, Basophils # (Auto) 0.0, Neutrophils % (Manual) 82, Lymphocytes % (Manual) 8, Monocytes % (Manual) 2, Eosinophils % (Manual) 0, Basophils % (Manual) 0, Band Neutrophils 8, Blood Morphology Comment NORMAL, Sodium Level 130L, Potassium Level 3.8, Chloride Level 100, Carbon Dioxide Level 17L, Anion Gap 13, Blood Urea Nitrogen 9, Creatinine 0.84, Estimat Glomerular Filtration Rate > 60, BUN/Creatinine Ratio 11, Glucose Level 113H, Calcium Level 10.2H, Corrected Calcium 10.1, Total Bilirubin 0.5, Aspartate Amino Transf (AST/SGOT) 12, Alanine Aminotransferase (ALT/SGPT) 15, Alkaline Phosphatase 90, C-Reactive Protein High Sensitivity 48.25H, Total Protein 8.0, Albumin 4.1, Lipase < 4L 10/18/19 10:44: Assessment/Plan Assessment/Plan Assessment/Plan ruq abdominal pain nausea vomiting cholelithiasis cholecystitis patient discussed u/s results and would recommend laparoscopic cholecystectomy with IOC all other indicated procedures she understands risks and benefits and wishes to proceed to or NPO IV hydration AUGUSTIN AGUILAR DO Oct 18, 2019 11:26
[2019-10-18] MEDS ORDERED: MIDAZOLAM 2 MG/2 ML (VERSED) VIAL ONE (11:27)
[2019-10-18] MEDS: LACTATED RINGERS 1,000 ML IV PRN ×2 (11:29→13:10)
[2019-10-18] MEDS ORDERED: fentaNYL INJECTION 100 MCG/2 ML AMP IV ONE (11:30)
--- OUTSIDE RECORDS SUMMARY | 2019-10-18 11:37 | XMS REPORT ---
Author Author Georgie SALMON Organization [facility] Address [address] [place] [address] Care Team Providers Care Contract Project Manager Name Role Phone FABIOLA SALMON Unavailable PROBLEMS Type Condition ICD9-CM Code [id number] Code Onset Dates Condition S tatus SNOMED Code Problem Acute constipation K59.00 Active 1 [id number] ALLERGIES No Information ENCOUNTERS Encounter Location Date Diagnosis [facility] [address] [facility] [place] [id number] [address] [place] [id number] Feb, Acute constipation K59.00 [facility] [address] [facility] [place] [id number] [address] [place] [id number] Sep, Strain of lumbar region, ini tial encounter S39.012A [facility] [address] [facility] [place] [id number] [address] [place] [phone] Nov, Dysuria R30.0 and Acute cyst itis N30.00 [facility] [address] [facility] [place] [id number] [address] [place] [id number] May, Acute non-recurrent maxillar y sinusitis J01.00 [facility] [address] [facility] [place] [id number] [address] [place] [id number] Jul, [facility] [address] [facility] [place] [id number] [address] [place] [phone] Jul, [facility] [address] [facility] [place] [id number] [address] [place] [phone] Apr, [facility] [address] [facility] [place] [id number] [address] [place] [id number] Apr, [facility] [address] [facility] [place] [id number] [address] [place] [phone] Oct, [facility] [address] [id number] [address] [place] [address], [place] [address] Oct, [facility] [address] [id number] [address] [place] [address], [place] [address] Sep, [facility] [address] [id number] [address] [place] [address], [place] [id number] Sep, [facility] [address] [id number] [address] [place] [address], [place] [id number] August, [facility] [address] [id number] [address] [place] [address], [place] [address] August, [facility] [address] [id number] [address] [place] [address], [place] [address] Jul, [facility] [address] [id number] [address] [place] [address], [place] [address] Jul, [facility] [address] [id number] [address] [place] [address], [place] [address] Oct, [facility] [address] [id number] [address] [place] [address], [place] [address] Oct, [facility] [address] [id number] [address] [place] [address], [place] [address] August, [facility] [address] [id number] [address] [place] [address], [place] [address] August, [facility] [address] [id number] [address] [place] [address], [place] [address] Jul, [facility] [address] [id number] [address] [place] [address], [place] [address] Jun, [facility] [address] [id number] [address] [place] [address], [place] [address] Jun, [facility] [address] [id number] [address] [place] [address], [place] [address] Jul, [facility] [address] [id number] [address] [place] [phone] Mar, [facility] [address] [id number] [address] [place] [id number] Feb, [facility] [address] [id number] [address] [place] [phone] Feb, [facility] [address] [id number] [address] [place] [id number] Feb, [facility] [address] [id number] [address] [place] [phone] Jan, [facility] [address] [id number] [address] [place] [phone] Jan, [facility] [address] [id number] [address] [place] [phone] Nov, [facility] [address] [id number] [address] [place] [phone] Sep, IMMUNIZATIONS No Known Immunizations SOCIAL HISTORY Never Assessed REASON FOR VISIT PLAN OF CARE VITAL SIGNS MEDICATIONS No Known Medications RESULTS No Results PROCEDURES No Known procedures INSTRUCTIONS MEDICATIONS ADMINISTERED No Known Medications MEDICAL (GENERAL) HISTORY Type Description Date Surgical History Tubal Ligation 1999
--- OUTSIDE RECORDS SUMMARY | 2019-10-18 11:37 | XMS REPORT ---
Author Author Georgie SALMON Organization [facility] Address [address] [place] [address] Care Team Providers Care Wellness Director Name Role Phone FABIOLA SALMON Unavailable PROBLEMS Type Condition ICD9-CM Code [id number] Code Onset Dates Condition S tatus SNOMED Code Problem Acute constipation K59.00 Active 1 [id number] ALLERGIES No Information ENCOUNTERS Encounter Location Date Diagnosis [facility] [address] [facility] [id number] [address] [place] [address] Feb, Acute constipation K59.00 [facility] [address] [place] [address] Sep, Strain of lumbar region, initial encount er S39.012A [facility] [address] [place] [id number] [address] [place] [address] Nov, Dysuria R30.0 and Acute cyst itis N30.00 [facility] [address] [address] May, Acute non-recurrent maxillary sinusitis J01.00 [place] [address] [address] Jul, [facility] [address] [address] Jul, [place] [address] [address] Apr, [facility] [address] [address] Apr, [facility] [address] [address] Oct, [facility] [address] [id number] [place] [address] Oct, [facility] [address] [id number] [place] [address] Sep, [facility] [address] [id number] [place] [address] Sep, [facility] [address] [id number] [place] [address] August, [facility] [address] [id number] [place] [address] August, [facility] [address] [id number] [place] [address] Jul, [facility] [address] [id number] [place] [address] Jul, [facility] [address] [id number] [place] [address] Oct, [facility] [address] [id number] [place] [address] Oct, [facility] [address] [id number] [place] [address] August, [facility] [address] [id number] [place] [address] August, [facility] [address] [id number] [place] [address] Jul, [facility] [address] [id number] [place] [address] Jun, [facility] [address] [id number] [place] [address] Jun, [facility] [address] [id number] [place] [address] Jul, [facility] [address] [id number] [place] [address] Mar, [facility] [address] [id number] [place] [address] Feb, [facility] [address] [id number] [place] [address] Feb, [facility] [address] [id number] [place] [address] Feb, [facility] [address] [id number] [place] [address] Jan, [facility] [address] [place] [id number] [place] [address] Jan, [facility] [address] [id number] [place] [address] Nov, [facility] [address] [id number] [place] [address] Sep, IMMUNIZATIONS No Known Immunizations SOCIAL HISTORY Never Assessed REASON FOR VISIT PLAN OF CARE VITAL SIGNS MEDICATIONS No Known Medications RESULTS No Results PROCEDURES No Known procedures INSTRUCTIONS MEDICATIONS ADMINISTERED No Known Medications MEDICAL (GENERAL) HISTORY Type Description Date Surgical History Tubal Ligation 1999
--- OUTSIDE RECORDS SUMMARY | 2019-10-18 11:37 | XMS REPORT ---
Author Author Georgie NICOLE Organization [facility] Address [address] [place] [address] Care Team Providers Care Channel Supervisor Name Role Phone DEBORAH NICOLE Unavailable PROBLEMS Unknown Problems ALLERGIES Substance Reaction Event Type Date Status NSAIDS hives Non Drug Allergy Sep, Active ENCOUNTERS Encounter Location Date Diagnosis [facility] [address] [facility] [id number] [address] [place] [address] Sep, Strain of lumbar region, ini tial encounter S39.012A [facility] [address] [facility] [id number] [address] [place] [address] Nov, Dysuria R30.0 and Acute cyst itis N30.00 [facility] [address] [facility] [id number] [address] [place] [address] May, Acute non-recurrent maxillar y sinusitis J01.00 [facility] [address] [facility] [id number] [address] [place] [address] Jul, [facility] [address] [facility] [id number] [address] [place] [address] Jul, [facility] [address] [facility] [id number] [address] [place] [address] Apr, [facility] [address] [facility] [id number] [address] [place] [address] Apr, [facility] [address] [facility] [id number] [address] [place] [address] Oct, [facility] [address] [facility] [id number] [address] [place] [address] Oct, [facility] [address] [id number] [address] [place] [address], [place] [address] Sep, [facility] [address] [id number] [address] [place] [address], [place] [address] Sep, [facility] [address] [id number] [address] [place] [address], [place] [address] August, [facility] [address] [id number] [address] [place] [address], [place] [address] August, [facility] [address] [id number] [address] [place] [address], [place] [address] Jul, [facility] [address] [id number] [address] [place] [address], [place] [address] Jul, [facility] [address] [id number] [address] [place] [address], [place] [address] Oct, [facility] [address] [id number] [address] [place] [address], [place] [address] Oct, [facility] [address] [id number] [address] [place] [address], [place] [address] August, [facility] [address] [id number] [address] [place] [address], [place] [address] August, [facility] [address] [id number] [address] [place] [address], [place] [address] Jul, [facility] [address] [id number] [address] [place] [address], [place] [address] Jun, [facility] [address] [id number] [address] [place] [address], [place] [address] Jun, [facility] [address] [id number] [address] [place] [address], [place] [address] Jul, [facility] [address] [id number] [address] [place] [address], [place] [address] Mar, [facility] [address] [id number] [address] [place] [address], [place] [address] Feb, [facility] [address] [id number] [address] [place] [address] Feb, [facility] [address] [facility] [id number] [address] [place] [address] Feb, [facility] [address] [facility] [id number] [address] [place] [address] Jan, [facility] [address] [facility] [id number] [address] [place] [address] Jan, [facility] [address] [facility] [id number] [address] [place] [address] Nov, [facility] [address] [facility] [id number] [address] [place] [address] Sep, IMMUNIZATIONS No Known Immunizations SOCIAL HISTORY Never Assessed REASON FOR VISIT ER f/u, PT reports she is here for the follow up and regarding getting back to [facility]. -Nba MCFARLANE , PHQ2, AUDIT C PLAN OF CARE Activity Details Follow Up prn Reason: VITAL SIGNS Height 66 in 2017-09-12 Weight 193.0 lbs 2017-09-12 Temperature 98.3 degrees Fahrenheit 2017-09-12 Heart Rate 81 bpm 2017-09-12 Respiratory Rate 20 2017-09-12 BMI 31.15 kg/m2 2017-09-12 Blood pressure systolic 130 mmHg 2017-09-12 Blood pressure diastolic 70 mmHg 2017-09-12 MEDICATIONS Medication Instructions Dosage Frequency Start Date End Date Duration S tatus Hydrocodone Bitartrate A ctive Cyclobenzaprine HCl 10 mg Orally 2 times a day 1 tablet as needed 1 2h Sep, Sep, 10 days Active PredniSONE 20 MG 2 tabs 3 days 1 tab 3 days 11 J 2017 6 days Active RESULTS No Results PROCEDURES No Known procedures INSTRUCTIONS MEDICATIONS ADMINISTERED No Known Medications MEDICAL (GENERAL) HISTORY Type Description Date Surgical History Tubal Ligation 1999
--- OUTSIDE RECORDS SUMMARY | 2019-10-18 11:37 | XMS REPORT ---
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 [employer] [facility] Address [address] [address] Care Team Providers Care Manager Qa Name Role Phone CELENA SIBLEY Unavailable NO, LOCAL PHYSICIAN Unavailable Unavailable CELENA SIBLEY Unavailable CELENA SIBLEY Unavailable EMMANUEL HALE Unavailable MARYJO CELENA A Unavailable DEBORAH NICOLE Unavailable DEBORAH GARICA Unavailable Migration, Doctor Unavailable Unavailable Migration, Doctor Unavailable Unavailable Migration, Doctor Unavailable Unavailable LUIS ANTONIO, FABIOLA Unavailable LUIS ANTONIO, FABIOLA Unavailable LUIS ANTONIO, FABIOLA Unavailable LUIS ANTONIO, FABIOLA Unavailable ODALYS SANCHEZ Unavailable LUIS ANTONIO, FABIOLA Unavailable SIDDHARTH HOFFMANN, HADLEY Sandhu Unavailable Unavailable Unavailable Unavailable Unavailable Unavailable Allergies The data below is from unstructured sources No Information No Information No Information No Information No Information No Information No Information No Information No Information Encounters Encounter Date Encounter Type Encounter Diagnosis Care Provider Facility Start: Emergency department HADLEY HOFFMANN V [facility] 10-18-2019 patient visit [facility] Start: [facility] Periapical abscess LAURO Vargas [facility] 05-30-2019 CARE without sinus CARE Start: [facility] Jonh, DEBORAH GARCIA [facility] 03-02-2018 CARE unspecified CARE End: 03-02-2018 Start: Patient encounter NONE PCP [facility] 03-02-2018 procedure [facility] ([id number]) Start: Patient encounter NONE PCP [facility] 09-12-2017 procedure [facility] ([id number]) Start: Patient encounter NA NA Not Availab le ([id number]) 09-09-2017 procedure Start: Emergency department HADLEY MESSINA MD Not Available ([id number]) 06-24-2013 patient visit End: 06-24-2013 Start: Emergency department HADLEY MESSINA MD Not Available ([id number]) 05-06-2013 patient visit End: 05-06-2013 Medical Equipment No Information Goals No Information Immunizations The data below is from unstructured sources No Known Immunizations No Known Immunizations No Known Immunizations No Known Immunizations No Known Immunizations No Known Immunizations No Known Immunizations No Known Immunizations No Known Immunizations No Known Immunizations No Known Immunizations No Known Immunizations No Known Immunizations No Known Immunizations No Known Immunizations Interventions No Information Medications Medication Drug Dates Sig Sig (Original) Class(es) (Normalized) docusate sodium 100 mg take 1 capsule Colace 100 MG Orally Once a day 1 oral capsule by mouth once capsule as needed 2 4h 30 day(s) Active (1 source) daily as needed polyethylene glycol 3350 Osmotic MiraLax - Ora lly Once a day 1 packet 75685 mg powder for oral Laxative mixed with 8 ounces of fluid 24h 30 solution day(s) Active (1 source) sennosides, prison 15 mg take 1 tablet Ex-Lax 15 MG O rally Once a day 1 tablet oral tablet by mouth once at bedtime as neede d 24h 30 day(s) (1 source) daily at Active bedtime as needed sulfamethoxazole 800 mg Dihydrofol Start: take 1 tablet Bactrim DS 800-160 mg 1 tablet by Oral / trimethoprim 160 mg ate 04-21-2014 by mouth twice r oute 2 times per day for 7 day(s) 12 oral tablet Reductase daily Apr, 2014 Activ e (1 source) Inhibitor Antibacter ial, Sulfonamid e Antimicrob ial Vegetable Laxative Vegetable Laxative Active (1 source) Payers The data below is from unstructured sources Payer Name Policy Number Subscriber Name Relationship Self Pay Ernesto Riggins ia E 01 Self / Same As Patient Plan of Treatment The data below is from unstructured sources Discharge Date 09/20/15 12:21pm Disposition 01 HOME, SELF-CARE Condition at Discharge Stable/Unchan ged Instructions/Education Provided Cont usion (ED) Prescriptions See Medication Section Referrals CELENA SIBLEY DO - P [facility] Physician Additional Instructions/Education Al l discharge instructions reviewed with patient and/or family. Voiced understanding. Try hot soaks in bath tub Consider purchasing a doughnut for sitting purposes Tylenol as directed no more than 4 g total in a days' time Activity Details Follow Up prn. if not improving with PCP or reg follow up Reason: Discharge Date 09/09/17 10:56pm Disposition 01 HOME, SELF-CARE Condition at Discharge Improved Instructions/Education Provided Lumb ar Muscle Strain (DC) Forms Provided Work Release Form Prescriptions See Medication Section Referrals CELENA SIBLEY DO Order Date: Primary Care Physician Address: [address] [facility] [phone] Additional Instructions/Education Al l discharge instructions reviewed with patient and/or family. Voiced understanding. Take medications as directed. Follow-up with your doctor early this week for recheck and further evaluation including possibility of imaging as indicated. You may use cdhj-env-blenmzx lidocaine patch to area of concern as discussed. Abrasions of this include icy hot with lidocaine or salonpas lidocaine. Return for worse pain, fever, vomiting, weakness, breathing problems or other concerns as needed. Activity Details Follow Up prn Reason: Activity Details Follow Up Follow up here or with PCP if persists or worsens. Reason: Problems Active Problems Problem Problem Date Last Documented Episodic/Chr Provider Classificati Recorded Date onic on Allergic Allergy status to analgesic agent Episodic HADLEY reactions status ; Translations: [ALLERGY MARCY RAMOS MD (3 sources) STATUS TO OTH DRUG/MEDS/BIO L SUB] Contraceptiv Tubal ligation status Episodic TIMOTH Y e and SIDDHARTH HOFFMANN procreative management (3 sources) Diabetes or Personal history of gestational Episodic HADLEY abnormal diabetes SIDDHARTH HOFFMANN glucose tolerance complicating ; childbirth; or the puerperium (3 sources) Disorders of Periapical abscess without sinus ; Episodic FABIOLA teeth and Translations: [ - Dental abscess BR ENNAN jaw K04.7] Other Phone: (3 sources) [phone] 3 E Codes: Overexertion from strenuous Episodic HADLEY Natural/envi movement or load, initial encounter SIDDHARTH hernandez (3 sources) E Codes: Home accidents Episodic HADLEY Place of SIDDHARTH HOFFMANN occurrence (2 sources) E Codes: Civilian activity done for income Episodic HADLEY Unspecified or pay ; Translations: [Other OCTAVIA KIM MD (5 sources) external cause status] Other Pain in limb Episodic LARA LEONIDAS orozco MD tissue disease (1 source) Other Acute constipation ; Translations: Episodic DEBORAH gastrointest [Acute constipation] TORCHIA inal Other Phone: disorders [phone] (10 sources) 3 Other Constipation, unspecified ; Episodic DEBORAH gastrointest Translations: [ - Acute TORCHIA inal constipation K59.00] Other Phone: disorders [phone] (10 sources) 3 Other Other injury of other sites of Episodic HADLEY injuries and trunk SIDDHARTH HOFFMANN conditions due to external causes (1 source) Substance-re Nicotine dependence, cigarettes, Chronic HADLEY lated uncomplicated ; Translations: OCTAVIA KIM MD disorders [NICOTINE DEPENDENCE, UNSPE CIFIED, (3 sources) UNCOMP] Past or Other Problems Problem Problem Date Last Documented Episodic/Chr Provider Classificati Recorded Date onic on E Codes: Overexertion from sudden strenuous HADLEY Overexertion movement ; Translations: [Other MARCY RAMOS MD (2 sources) overexertion and strenuous and repetitive movements or loads] Procedures Date Procedure Procedure Detail Performing Cl inician Start: Radiologic exam DEBORAH GARCIA 03-02-2018 abdomen 2 views Other Phone: Start: Urnls dip ODALYS SANCHEZ 04-21-2014 stick/tablet rgnt Other Phone: auto w/o microscopy Results Test Name Value Interpreta Reference Facilit Date tion Range y Time xray : abdomen 2v (upright and kub) - in house on null NEGATED: Highlighted Communi row ty Laboratory studies Health (set) [facility] ([id number]) laboratory on 2019-10-18 Albumin [Mass/Vol] 4.1 g/dL Negative 3.2-4.5 PENDING 10-08 0-2 g/dL [facility] 03:20-0 ([id number]) 400 ALP [Catalytic 90 U/L Negative 40-136 U/L PENDING 10-17-2 activity/Vol] [facility] 03:20-0 ([id number]) 400 ALT [Catalytic 15 U/L Negative 0-55 U/L PENDING 07-10-2 activity/Vol] [facility] 020 [facility] 03:20-0 ([id number]) 400 Anion gap 13 mmol/L Negative 5-14 PENDING 07-10-2 [Moles/Vol] mmol/L [facility] 020 N [facility] 03:20-0 ([id number]) 400 AST [Catalytic 12 U/L Negative 5-34 U/L PENDING 07-10-2 activity/Vol] [facility] 020 N [facility] 03:20-0 ([id number]) 400 Band form 8 % Invalid % PENDING -10-2 neutrophils/100 WBC Interpreta [facility] 020 (Bld) tion Code N [facility] 03:20-0 ([id number]) 400 Basophils (Bld) 0.0 10*3/uL Negative 0.0-0.1 PENDING -10 -2 [#/Vol] 10*3/uL [facility] 020 [facility] 03:20-0 ([id number]) 400 Basophils/100 WBC 0 % Negative PENDING 10-2 (Bld) [facility] 020 [facility] 03:20-0 ([id number]) 400 Bilirubin [Mass/Vol] 0.5 mg/dL Negative 0.1-1.0 PENDING 07 -10-2 mg/dL [facility] 020 [facility] 03:20-0 ([id number]) 400 Calcium [Mass/Vol] 10.2 mg/dL High 8.5-10.1 PENDING 07- 10-2 mg/dL [facility] 020 [facility] 03:20-0 ([id number]) 400 Calcium [Mass/Vol] 10.1 mg/dL Negative 8.5-10.1 PENDING 07- 10-2 mg/dL [facility] 020 [facility] 03:20-0 ([id number]) 400 Chloride [Moles/Vol] 100 mmol/L Negative 98-107 PENDING 0 7-10-2 mmol/L [facility] 020 [facility] 03:20-0 ([id number]) 400 CO2 [Moles/Vol] 17 mmol/L Low 21-32 PENDING 07-10-2 mmol/L [facility] 020 [facility] 03:20-0 ([id number]) 400 Creatinine 0.84 mg/dL Negative 0.60-1.30 PENDING [Mass/Vol] mg/dL [facility] 020 [facility] 03:20-0 ([id number]) 400 Creatinine and > Invalid PENDING Glomerular Interpreta [facility] 020 filtration tion Code N [facility] 03:20-0 rate.predicted panel ([id number]) 400 - Serum, Plasma or Blood CRP [Mass/Vol] 48.25 High 0.00-0.50 PENDING mg/dL [facility] 020 [facility] 03:20-0 ([id number]) 400 Eosinophils (Bld) 0.0 10*3/uL Negative 0.0-0.3 PENDING 01-09 [#/Vol] 10*3/[facility]L [facility] 03:20-0 ([id number]) 400 Eosinophils/100 WBC 0 % Negative 0-10 % PENDING 01-09 (Bld) [facility] 020 [facility] 03:20-0 ([id number]) 400 Eosinophils/100 WBC 0 % Invalid % PENDING 01-09 (Nose) Interpreta [facility] 020 tion Code [facility] 03:20-0 ([id number]) 400 Erythrocyte 13.4 % Negative 10.0-14.5 PENDING distribution width % [facility] 020 (RBC) [Ratio] [facility] 03:20-0 ([id number]) 400 Glucose [Mass/Vol] 113 mg/dL High 70-105 PENDING 07-1 0-2 mg/dL [facility] 020 [facility] 03:20-0 ([id number]) 400 Hematocrit (Bld) 46 % Negative 35-52 % PENDING [Volume fraction] [facility] 020 [facility] 03:20-0 ([id number]) 400 Hemoglobin (Bld) 15.9 g/dL Negative 11.5-16.0 PENDING [Mass/Vol] g/dL [facility] 020 [facility] 03:20-0 ([id number]) 400 Lipase [Catalytic U/L Low 8-78 U/L PENDING 10-17 activity/Vol] [facility] 020 [facility] 03:20-0 ([id number]) 400 Lymphocytes (Bld) 1.3 10*3/uL Negative 1.0-4.0 PENDING 01-09 [#/Vol] 10*3 [facility] 020 [facility] 03:20-0 ([id number]) 400 Lymphocytes/100 WBC 6 % Low 12-44 % PENDING 2 (Bld) [facility] 020 [facility] 03:20-0 ([id number]) 400 Lymphocytes/100 WBC 8 % Invalid % PENDING 01-09 (Bld) Interpreta [facility] 020 tion Code [facility] 03:20-0 ([id number]) 400 MCH (RBC) [Entitic 31 pg Negative 25-34 pg PENDING - 0-2 mass] [facility] 020 [facility] 03:20-0 ([id number]) 400 MCHC (RBC) 35 g/dL Negative 32-36 g/dL PENDING [Mass/Vol] [facility] 020 [facility] 03:20-0 ([id number]) 400 MCV (RBC) [Entitic 87 Negative 80-99 PENDING - 0-2 vol] [foz_us] [facility] 020 [facility] 03:20-0 ([id number]) 400 Monocytes (Bld) 0.7 10*3/uL Negative 0.0-1.0 PENDING 10-17 [#/Vol] 10*3 [facility] 020 [facility] 03:20-0 ([id number]) 400 Monocytes/100 WBC 3 % Negative 0-12 % PENDING 10-17 (Bld) [facility] 020 [facility] 03:20-0 ([id number]) 400 Monocytes/100 WBC 2 % Invalid % PENDING 10-172 (Bld) Interpreta [facility] 020 tion Code [facility] 03:20-0 ([id number]) 400 Neutrophils (Bld) 18.7 10*3/uL High 1.8-7.8 PENDING [#/Vol] 10*3 [facility] 020 [facility] 03:20-0 ([id number]) 400 Neutrophils/100 WBC 91 % High 42-75 % PENDING 2 (Bld) [facility] 020 [facility] 03:20-0 ([id number]) 400 Platelet mean volume 11.2 High 7.4-10.4 PENDING 07 -10-2 (Bld) [Entitic vol] [foz_us] [facility] 020 N [facility] 03:20-0 ([id number]) 400 Platelets (Bld) 201 10*3/uL Negative 130-400 PENDING 10-17 [#/Vol] 10*3/uL [facility] 020 N [facility] 03:20-0 ([id number]) 400 Potassium 3.8 mmol/L Negative 3.6-5.0 PENDING [Moles/Vol] mmol/L [facility] 020 N [facility] 03:20-0 ([id number]) 400 Protein [Mass/Vol] 8.0 g/dL Negative 6.4-8.2 PENDING - 0-2 g/dL [facility] 020 N [facility] 03:20-0 ([id number]) 400 RBC (Bld) [#/Vol] 5.22 10*6/uL Negative 4.35-5.85 PENDING 10*6/uL [facility] 020 [facility] 03:20-0 ([id number]) 400 RBC morphology NORMAL Invalid PENDING finding Nom (Bld) Interpreta [facility] 020 tion Code N [facility] 03:20-0 ([id number]) 400 Segmented 82 % Invalid % PENDING neutrophils/100 WBC Interpreta [facility] 020 (Bld) tion Code N [facility] 03:20-0 ([id number]) 400 Sodium [Moles/Vol] 130 mmol/L Low 135-145 PENDING 01-09 mmol/L [facility] 020 [facility] 03:20-0 ([id number]) 400 Urea nitrogen 9 mg/dL Negative 7-18 mg/dL PENDING [Mass/Vol] [facility] 020 N [facility] 03:20-0 (65504) 400 Urea 11 mg/mg Invalid PENDING nitrogen/Creatinine Interpreta [facility] 020 [Mass ratio] tion Code N [facility] 03:20-0 ([id number]) 400 WBC (Bld) [#/Vol] 20.6 10*3/uL High 4.3-11.0 PENDING 10*3/uL [facility] 020 N [facility] 03:20-0 ([id number]) 400 Social History The data below is from unstructured sources History Response Recorde d Date/Time Alcohol Use Denies Use 0 08/27/12 3:59pm Recreational Drug Use N 08/27/12 3:59pm Vital Signs Date Time Vital Sign Value Performing Clinician Facil ity 03-02-2018 Body height 167.64 cm [facility] 12:30-0500 Other Phone: [facility] [place] ([id number]) 03-02-2018 Body mass index 30.66 kg/m2 DEBORAH [facility] 12:30-0500 (BMI) [Ratio] Other Phone: [facility] ([id number]) 03-02-2018 Body temperature 97.9 [degF] [facility] 12:30-0500 Other Phone: [facility] [place] ([id number]) 03-02-2018 Body weight 86.18 kg [facility] 12:30-0500 Other Phone: [facility] [place] ([id number]) 04-21-2014 Body height 167.64 cm ODALYS SACNHEZ [facility] 13:45-0500 Other Phone: [facility] ([id number]) 04-21-2014 Body temperature 98 [degF] ODALYS SANCHEZ [facility] 13:45-0500 Other Phone: [facility] [place] ([id number]) 04-21-2014 Body weight 70.67 kg ODALYS SANCHEZ [facility] 13:45-0500 Other Phone: [facility] [place] ([id number]) 09-09-2013 Body height 167.64 cm [facility] 10:38-0400 Other Phone: [facility] [place] ([id number]) 09-09-2013 Body temperature 98.4 [degF] [facility] 10:38-0400 Other Phone: [facility] [place] ([id number]) 09-09-2013 Body weight 84.88 kg [facility] 10:38-0400 Other Phone: [facility] [place] ([id number]) 10-13-2012 Body height 167.64 cm [facility] 11:21-0400 Other Phone: [facility] [place] ([id number]) 10-13-2012 Body temperature 97.8 [degF] [facility] 11:0400 Other Phone: [facility] [place] ([id number]) 10-13-2012 Body weight 87.4 kg [facility] 11:21-0400 Other Phone: [facility] [place] ([id number]) Functional Status The data below is from unstructured sourcesNo functional status results.No functional status results.No functional status results.No functional status results.No functional status results.No functional status information available.No functional status information available. Mental Status No Information Advance Directives Directive Response Recor ded Date/Time Advance Directives No 10:45am Health Care Power of Internal Control Consultant No 09/20/15 10:45am Organ Donor No 09/20/15 10:45am Resuscitation Status Full Code 09/20/15 10:45am Directive Response Recor ded Date/Time Advance Directives No 3:47am Organ Donor No 06/24/13 3:47am Directive Response Recor ded Date Advance Directives N 3:59pm Organ Donor Y 08/27/12 3 :59pm Directive Response Recor ded Date/Time Advance Directives No 11:45am Health Care Power of Internal Control Consultant No 09/01/14 11:45am Organ Donor No 09/01/14 11:45am Resuscitation Status Full Code 09/01/14 11:45am Directive Response Recor ded Date/Time Advance Directives No 8:17pm Health Care Power of Internal Control Consultant No 09/09/17 8:17pm Organ Donor No 09/09/17 8:17pm Resuscitation Status Full Code 09/09/17 8:17pm Discharge Instructions No hospital discharge instructions.No hospital discharge instructions.No hospital discharge instructions.No hospital discharge instruction information available. Additional Source Comments This clinical document has been generated using [employer] software that has been certified by the Office of the National Coordinator for Health Information Technology (ONC 15.99.04.3023.Diam.31.00.0.654717) and the National Committee for Miller Apprentice (NCQA, as an eMeasure certified technology). FOR RECORDS PERTAINING TO PATIENTS WHO ARE OR HAVE BEEN ENROLLED IN A CHEMICAL D EPENDENCY/SUBSTANCE ABUSE PROGRAM, SOME INFORMATION MAY BE OMITTED. This clinica l summary was aggregated from multiple sources. Caution should be exercised in using it in the provision of clinical care. This summary normalizes information from multiple sources, and as a consequence, information in this document may ma terially change the coding, format and clinical context of patient data. In jun tion, data may be omitted in some cases. CLINICAL DECISIONS SHOULD BE BASED ON T HE PRIMARY CLINICAL RECORDS. [employer] provides no warranty or guara ntee of the accuracy or completeness of information in this document.The followi ng information is based on time limited clinical information UNRECOGNIZED CONTENT PROVIDED BELOW FOR UNRECOGNIZED SECTION REASON FOR VISIT Constipation for the past week. last BM was 5 days ago et small. maddie pt reports minimal passing of [id number]-WtuESQ-Ignacio
--- OUTSIDE RECORDS SUMMARY | 2019-10-18 11:37 | XMS REPORT ---
Author Author Georgie SALMON Organization [facility] Address [address] [place] [address] Care Team Providers Care Range Operator Name Role Phone FABIOLA SALMON Unavailable PROBLEMS Type Condition ICD9-CM Code WSK48-SZ Code Onset Dates Condition S tatus SNOMED Code Problem Acute constipation K59.00 Active 1 [id number] ALLERGIES No Information ENCOUNTERS Encounter Location Date Diagnosis [facility] [address] [facility] [id number] [address] [place] [id number] Feb, Acute constipation K59.00 [facility] [address] [address] Sep, Strain of lumbar region, initial encount er S39.012A [facility] [address] [place] [id number] [address] [place] [address] Nov, Dysuria R30.0 and Acute cyst itis N30.00 [facility] [address] [address] May, Acute non-recurrent maxillary sinusitis J01.00 [place] [address] [address] Jul, [facility] [address] [address] Jul, [place] [address] [address] Apr, [facility] [address] [address] Apr, [facility] [address] [address] Oct, [facility] [address] [id number] [place] [address] Oct, [facility] [address] [id number] [place] [address] Sep, [facility] [address] [id number] [place] [address] Sep, [facility] [address] [id number] [place] [address] August, [facility] [address] [id number] [place] [address] August, [facility] [address] [id number] [place] [address] Jul, [facility] [address] [id number] [place] [address] Jul, [facility] [address] [id number] [place] [address] Oct, [facility] [address] [id number] [place] [address] Oct, [facility] [address] [id number] [place] [address] August, [facility] [address] [id number] [place] [address] August, [facility] [address] [id number] [place] [address] Jul, [facility] [address] [id number] [place] [address] Jun, [facility] [address] [id number] [place] [address] Jun, [facility] [address] [id number] [place] [address] Jul, [facility] [address] [id number] [place] [address] Mar, [facility] [address] [id number] [place] [address] Feb, [facility] [address] [id number] [place] [address] Feb, [facility] [address] [id number] [place] [address] Feb, [facility] [address] [id number] [place] [address] Jan, [facility] [address] [place] [id number] [place] [address] Jan, [facility] [address] [id number] [place] [address] Nov, [facility] [address] [id number] [place] [address] Sep, IMMUNIZATIONS No Known Immunizations SOCIAL HISTORY Never Assessed REASON FOR VISIT PLAN OF CARE VITAL SIGNS Height 66 in 2013-09-09 Weight 187.12 lbs 2013-09-09 Temperature 98.4 degrees Fahrenheit 2013-09-09 Heart Rate 80 bpm 2013-09-09 Respiratory Rate 18 2013-09-09 Blood pressure systolic 114 mmHg 2013-09-09 Blood pressure diastolic 74 mmHg 2013-09-09 MEDICATIONS No Known Medications RESULTS No Results PROCEDURES No Known procedures INSTRUCTIONS MEDICATIONS ADMINISTERED No Known Medications MEDICAL (GENERAL) HISTORY Type Description Date Surgical History Tubal Ligation 1999
--- OUTSIDE RECORDS SUMMARY | 2019-10-18 11:37 | XMS REPORT ---
Author Author Georgie Gage Doctor Organization [facility] Address Unknown Phone Unavailable Care Team Providers Care Liner Roll Changer Name Role Phone Migration, Doctor Unavailable Unavailable PROBLEMS Type Condition ICD9-CM Code [id number] Code Onset Dates Condition S tatus SNOMED Code Problem Acute constipation K59.00 Active 1 [id number] ALLERGIES No Information ENCOUNTERS Encounter Location Date Diagnosis [facility] [address] [facility] [id number] [address] [place] [address] Feb, Acute constipation K59.00 [facility] [address] [facility] [id number] [address] [place] [address] Sep, Strain of lumbar region, ini tial encounter S39.012A [facility] [address] [facility] [id number] [address] [place] [address] Nov, Dysuria R30.0 and Acute cyst itis N30.00 [facility] [address] [id number] [address] [place] [address] May, Acute non-recurrent maxillar y sinusitis J01.00 [facility] [address] [facility] [id number] [address] [place] [address] Jul, [facility] [address] [facility] [id number] [address] [place] [address] Jul, [facility] [address] [facility] [id number] [address] [place] [address] Apr, [facility] [address] [id number] [address] [place] [address] Apr, [facility] [address] [id number] [address] [place] [address] Oct, [facility] [address] [id number] [address] [place] [address] [place] [address] Oct, [facility] [address] [id number] [address] [place] [address], [place] [address] Sep, [facility] [address] [id number] [address] [place] [address], [place] [address] Sep, [facility] [address] [id number] [address] [place] [address], [place] [address] August, [facility] [address] [id number] [address] [place] [address], [place] [address] August, [facility] [address] [id number] [address] [place] [address], [place] [address] Jul, [facility] [address] [id number] [address] [place] [address], [place] [address] Jul, [facility] [address] [id number] [address] [place] [address], [place] [address] Oct, [facility] [address] [id number] [address] [place] [address], [place] [address] Oct, [facility] [address] [id number] [address] [place] [address], [place] [address] August, [facility] [address] [id number] [address] [place] [address], [place] [address] August, [facility] [address] [id number] [address] [place] [address], [place] [address] Jul, [facility] [address] [id number] [address] [place] [address], [place] [address] Jun, [facility] [address] [id number] [address] [place] [address], [place] [address] Jun, [facility] [address] [id number] [address] [place] [address], [place] [address] Jul, [facility] [address] [id number] [address] [place] [address], [place] [address] Mar, [facility] [address] [id number] [address] [place] [address] Feb, [facility] [address] [id number] [address] [place] [phone] Feb, [facility] [address] [id number] [address] [place] [address] Feb, [facility] [address] [id number] [address] [place] [address] Jan, [facility] [address] [id number] [address] [place] [phone] Jan, [facility] [address] [id number] [address] [place] [address] Nov, [facility] [address] [id number] [address] [place] [address] Sep, IMMUNIZATIONS No Known Immunizations SOCIAL HISTORY Never Assessed REASON FOR VISIT [facility] [place]AN OF CARE VITAL SIGNS MEDICATIONS No Known Medications RESULTS No Results PROCEDURES No Known procedures INSTRUCTIONS MEDICATIONS ADMINISTERED No Known Medications MEDICAL (GENERAL) HISTORY Type Description Date Surgical History Tubal Ligation 1999
--- OUTSIDE RECORDS SUMMARY | 2019-10-18 11:37 | XMS REPORT ---
Author Author Georgie SANCHEZ Organization [facility] Address [address] [place] [address] Care Team Providers Care Digitizer Operator Name Role Phone ODALYS SANCHEZ Unavailable PROBLEMS Type Condition ICD9-CM Code [id number] Code Onset Dates Condition S tatus SNOMED Code Problem Acute constipation K59.00 Active 1 [id number] ALLERGIES No Information ENCOUNTERS Encounter Location Date Diagnosis [facility] [address] [id number] [address] [place] [address] May, Dental abscess K04.7 [facility] [address] [facility] [id number] [address] [place] [address] Feb, Acute constipation K59.00 [facility] [address] [facility] [id number] [address] [place] [address] Sep, Strain of lumbar region, ini tial encounter S39.012A [facility] [address] [facility] [id number] [address] [place] [address] Nov, Dysuria R30.0 and Acute cyst itis N30.00 [facility] [address] [facility] [id number] [address] [place] [address] May, Acute non-recurrent maxillar y sinusitis J01.00 [facility] [address] [facility] [id number] [address] [place] [phone] Jul, [facility] [address] [facility] [id number] [address] [place] [phone] Jul, [facility] [address] [id number] [address] [place] [phone] Apr, [facility] [address] [id number] [address] [place] [address], [place] [address] Apr, [facility] [address] [id number] [address] [place] [address], [place] [address] Oct, [facility] [address] [id number] [address] [place] [address], [place] [address] Oct, [facility] [address] [id number] [address] [place] [address], [place] [address] Sep, [facility] [address] [id number] [address] [place] [address], [place] [address] Sep, [facility] [address] [id number] [address] [place] [address], [place] [address] August, [facility] [address] [id number] [address] [place] [address], [place] [address] August, [facility] [address] [id number] [address] [place] [address], [place] [address] Jul, [facility] [address] [id number] [address] [place] [address], [place] [address] Jul, [facility] [address] [id number] [address] [place] [address], [place] [address] Oct, [facility] [address] [id number] [address] [place] [address], [place] [address] Oct, [facility] [address] [id number] [address] [place] [address], [place] [address] August, [facility] [address] [id number] [address] [place] [address], [place] [address] August, [facility] [address] [id number] [address] [place] [address], [place] [address] Jul, [facility] [address] [id number] [address] [place] [address], [place] [address] Jun, [facility] [address] [id number] [address] [place] [address], [place] [address] Jun, [facility] [address] [id number] [address] [place] [phone] Jul, [facility] [address] [id number] [address] [place] [phone] Mar, [facility] [address] [id number] [address] [place] [phone] Feb, [facility] [address] [id number] [address] [place] [address] Feb, [facility] [address] [id number] [address] [place] [phone] Feb, [facility] [address] [id number] [address] [place] [phone] Jan, [facility] [address] [id number] [address] [place] [address] Jan, [facility] [address] [id number] [address] [place] [phone] Nov, [facility] [address] [id number] [address] [place] [address] Sep, IMMUNIZATIONS No Known Immunizations SOCIAL HISTORY Never Assessed REASON FOR VISIT PLAN OF CARE VITAL SIGNS Height 66 in 2014-04-21 Weight 155.8 lbs 2014-04-21 Temperature 98 degrees Fahrenheit 2014-04-21 Heart Rate 84 bpm 2014-04-21 Respiratory Rate 18 2014-04-21 Blood pressure systolic 110 mmHg 2014-04-21 Blood pressure diastolic 80 mmHg 2014-04-21 MEDICATIONS No Known Medications RESULTS No Results PROCEDURES Procedure Date Ordered Result Body Site URINALYSIS, AUTO, W/O SCOPE Apr 21, 2014 INSTRUCTIONS MEDICATIONS ADMINISTERED No Known Medications MEDICAL (GENERAL) HISTORY Type Description Date Surgical History Tubal Ligation 1999
--- OUTSIDE RECORDS SUMMARY | 2019-10-18 11:37 | XMS REPORT ---
Author Author Georgie Gage Doctor Organization [facility] Address Unknown Phone Unavailable Care Team Providers Care Search Engine Optimizer Name Role Phone Migration, Doctor Unavailable Unavailable PROBLEMS Type Condition ICD9-CM Code [id number] Code Onset Dates Condition S tatus SNOMED Code Problem Acute constipation K59.00 Active 1 [id number] ALLERGIES No Information ENCOUNTERS Encounter Location Date Diagnosis [facility] [address] [facility] [id number] [address] [place] [address] Feb, Acute constipation K59.00 [facility] [address] [facility] [id number] [address] [place] [address] Sep, Strain of lumbar region, ini tial encounter S39.012A [facility] [address] [facility] [id number] [address] [place] [address] Nov, Dysuria R30.0 and Acute cyst itis N30.00 [facility] [address] [place] [place] [id number] [address] [place] [address] May, Acute non-recurrent maxillar y sinusitis J01.00 [facility] [address] [facility] [id number] [address] [place] [address] Jul, [facility] [address] [facility] [id number] [address] [place] [address] Jul, [facility] [address] [facility] [id number] [address] [place] [address] Apr, [facility] [address] [place] [id number] [address] [place] [address] Apr, [facility] [address] [place] [id number] [address] [place] [address] Oct, [facility] [address] [id number] [address] [place] [address] [place] [address] Oct, [facility] [address] [id number] [address] [place] [address], [place] [address] Sep, [facility] [address] [id number] [address] [place] [address], [place] [address] Sep, [facility] [address] [id number] [address] [place] [address], [place] [address] August, [facility] [address] [id number] [address] [place] [address], [place] [address] August, [facility] [address] [id number] [address] [place] [address], [place] [address] Jul, [facility] [address] [id number] [address] [place] [address], [place] [address] Jul, [facility] [address] [id number] [address] [place] [address], [place] [address] Oct, [facility] [address] [id number] [address] [place] [address], [place] [address] Oct, [facility] [address] [id number] [address] [place] [address], [place] [address] August, [facility] [address] [id number] [address] [place] [address], [place] [address] August, [facility] [address] [id number] [address] [place] [address], [place] [address] Jul, [facility] [address] [id number] [address] [place] [address], [place] [address] Jun, [facility] [address] [id number] [address] [place] [address], [place] [address] Jun, [facility] [address] [id number] [address] [place] [address], [place] [address] Jul, [facility] [address] [id number] [address] [place] [address], [place] [address] Mar, [facility] [address] [id number] [address] [place] [address] Feb, [facility] [address] [id number] [address] [place] [address] Feb, [facility] [address] [id number] [address] [place] [address] Feb, [facility] [address] [id number] [address] [place] [address] Jan, [facility] [address] [id number] [address] [place] [address] Jan, [facility] [address] [id number] [address] [place] [address] Nov, [facility] [address] [id number] [address] [place] [address] Sep, IMMUNIZATIONS No Known Immunizations SOCIAL HISTORY Never Assessed REASON FOR VISIT [facility] PLAN OF CARE VITAL SIGNS MEDICATIONS Medication Instructions Dosage Frequency Start Date End Date Duration S tatus Bactrim DS 800-160 mg 1 tablet by Oral route 2 times p er day for 7 day(s) Apr, Active PredniSONE 20 mg 2 tablet by Oral route 1 time per day for 5 day(s) Jun, Active PredniSONE 10 mg 1 Tablet 2 times per day for 5 days Take at 8 am and noon. Do not take after 3 pm Sep, Active RESULTS No Results PROCEDURES No Known procedures INSTRUCTIONS MEDICATIONS ADMINISTERED No Known Medications MEDICAL (GENERAL) HISTORY Type Description Date Surgical History Tubal Ligation 1999
--- OUTSIDE RECORDS SUMMARY | 2019-10-18 11:37 | XMS REPORT ---
Author Author Georgie SALMON Organization [facility] Address [address] [place] [address] Care Team Providers Care Chief Hydroelectric Station Operator Name Role Phone FABIOLA SALMON Unavailable PROBLEMS Type Condition ICD9-CM Code [id number] Code Onset Dates Condition S tatus SNOMED Code Problem Acute constipation K59.00 Active 1 [id number] ALLERGIES No Information ENCOUNTERS Encounter Location Date Diagnosis [facility] [address] [id number] [address] [place] [address] May, Dental abscess K04.7 [facility] [id number] [place] [address] Feb, Acute constipation K59.00 [facility] [address] [id number] [address] [place] [address] Sep, Strain of lumbar region, ini tial encounter S39.012A [facility] [address] [id number] [address] [place] [address] Nov, Dysuria R30.0 and Acute cyst itis N30.00 [facility] [address] [id number] [address] [place] [address] May, Acute non-recurrent maxillar y sinusitis J01.00 [facility] [address] [facility] [id number] [address] [place] [address] Jul, [facility] [address] [id number] [address] [place] [address] Jul, [facility] [address] [id number] [address] [place] [address] Apr, [facility] [address] [id number] [address] [place] [address], [place] [address] Apr, [facility] [address] [id number] [address] [place] [address], [place] [address] Oct, [facility] [address] [id number] [address] [place] [address], [place] [address] Oct, [facility] [address] [id number] [address] [place] [address], [place] [address] Sep, [facility] [address] [id number] [address] [place] [address], [place] [address] Sep, [facility] [address] [id number] [address] [place] [address], [place] [address] August, [facility] [address] [id number] [address] [place] [address], [place] [address] August, [facility] [address] [id number] [address] [place] [address], [place] [address] Jul, [facility] [address] [id number] [address] [place] [address], [place] [address] Jul, [facility] [address] [id number] [address] [place] [address], [place] [address] Oct, [facility] [address] [id number] [address] [place] [address], [place] [address] Oct, [facility] [address] [id number] [address] [place] [address], [place] [address] August, [facility] [address] [id number] [address] [place] [address], [place] [address] August, [facility] [address] [id number] [address] [place] [address], [place] [address] Jul, [facility] [address] [id number] [address] [place] [address], [place] [address] Jun, [facility] [address] [id number] [address] [place] [address], [place] [address] Jun, [facility] [address] [id number] [address] [place] [address] Jul, [facility] [address] [id number] [address] [place] [address] Mar, [facility] [address] [id number] [address] [place] [address] Feb, [facility] [address] [id number] [address] [place] [phone] Feb, [facility] [address] [id number] [address] [place] [address] Feb, [facility] [address] [id number] [address] [place] [phone] Jan, [facility] [address] [id number] [address] [place] [address] Jan, [facility] [address] [id number] [address] [place] [address] Nov, [facility] [address] [id number] [address] [place] [address] Sep, IMMUNIZATIONS No Known Immunizations SOCIAL HISTORY Never Assessed REASON FOR VISIT PLAN OF CARE VITAL SIGNS Height 66 in 2012-10-13 Weight 192.68 lbs 2012-10-13 Temperature 97.8 degrees Fahrenheit 2012-10-13 Heart Rate 88 bpm 2012-10-13 Respiratory Rate 18 2012-10-13 Blood pressure systolic 118 mmHg 2012-10-13 Blood pressure diastolic 78 mmHg 2012-10-13 MEDICATIONS No Known Medications RESULTS No Results PROCEDURES No Known procedures INSTRUCTIONS MEDICATIONS ADMINISTERED No Known Medications MEDICAL (GENERAL) HISTORY Type Description Date Surgical History Tubal Ligation 1999
--- OUTSIDE RECORDS SUMMARY | 2019-10-18 11:37 | XMS REPORT ---
Author Author Georgie GARCIA Organization [facility] Address [address] [place] [address] Care Team Providers Care Grain Elevator Man Name Role Phone DEBORAH GARCIA Unavailable PROBLEMS Type Condition ICD9-CM Code [id number] Code Onset Dates Condition S tatus SNOMED Code Problem Acute constipation K59.00 Active 1 91093506 ALLERGIES Substance Reaction Event Type Date Status NSAIDS hives Non Drug Allergy Feb, Active ENCOUNTERS Encounter Location Date Diagnosis [facility] [address] [id number] [address] [place] [address] Feb, Acute constipation K59.00 [facility] [address] [id number] [address] [place] [address] Sep, Strain of lumbar region, ini tial encounter S39.012A [facility] [address] [id number] [address] [place] [address] Nov, Dysuria R30.0 and Acute cyst itis N30.00 [facility] [address] [id number] [address] [place] [address] May, Acute non-recurrent maxillar y sinusitis J01.00 [facility] [address] [facility] [id number] [address] [place] [address] Jul, [facility] [address] [facility] [id number] [address] [place] [address] Jul, [facility] [address] [id number] [address] [place] [address] Apr, [facility] [address] [id number] [address] [place] [address] Apr, [facility] [address] [id number] [address] [place] [address], [place] [address] Oct, [facility] [address] [id number] [address] [place] [address], [place] [address] Oct, [facility] [address] [id number] [address] [place] [address], [place] [address] Sep, [facility] [address] [id number] [address] [place] [address], [place] [address] Sep, [facility] [address] [id number] [address] [place] [address], [place] [address] August, [facility] [address] [id number] [address] [place] [address], [place] [address] August, [facility] [address] [id number] [address] [place] [address], [place] [address] Jul, [facility] [address] [id number] [address] [place] [address], [place] [address] Jul, [facility] [address] [id number] [address] [place] [address], [place] [address] Oct, [facility] [address] [id number] [address] [place] [address], [place] [address] Oct, [facility] [address] [id number] [address] [place] [address], [place] [address] August, [facility] [address] [id number] [address] [place] [address], [place] [address] August, [facility] [address] [id number] [address] [place] [address], [place] [address] Jul, [facility] [address] [id number] [address] [place] [address], [place] [address] Jun, [facility] [address] [id number] [address] [place] [address], [place] [address] Jun, [facility] [address] [id number] [address] [place] [address] [address] Jul, [facility] [address] [id number] [address] [place] [address] Mar, [facility] [address] [id number] [address] [place] [address] Feb, [facility] [address] [facility] [id number] [address] [place] [address] Feb, [facility] [address] [id number] [address] [place] [address] Feb, [facility] [address] [id number] [address] [place] [address] Jan, [facility] [address] [facility] [id number] [address] [place] [address] Jan, [facility] [address] [facility] [id number] [address] [place] [address] Nov, [facility] [address] [facility] [id number] [address] [place] [address] Sep, IMMUNIZATIONS No Known Immunizations SOCIAL HISTORY Never Assessed REASON FOR VISIT Constipation for the past week. last BM was 5 days ago et small. maddie pt reports minimal passing of gas PLAN OF CARE Activity Details Follow Up Follow up here or with PCP i f persists or worsens. Reason: VITAL SIGNS Height 66 in 2018-03-02 Weight 190.0 lbs 2018-03-02 Temperature 97.9 degrees Fahrenheit 2018-03-02 Heart Rate 80 bpm 2018-03-02 Respiratory Rate 20 2018-03-02 BMI 30.66 kg/m2 2018-03-02 Blood pressure systolic 126 mmHg 2018-03-02 Blood pressure diastolic 74 mmHg 2018-03-02 MEDICATIONS Medication Instructions Dosage Frequency Start Date End Date Duration S tatus MiraLax - Orally Once a day 1 packet mixed with 8 ounces of fluid 24h 30 day(s) Active Vegetable Laxative Activ e Hydrocodone Bitartrate N ot-Taking Ex-Lax 15 MG Orally Once a day 1 tablet at bedtime as needed 24h 30 day(s) Active Colace 100 MG Orally Once a day 1 capsule as needed 24h 30 day(s) Active RESULTS Name Result Date Reference Range Xray : Abdomen 2v (Upright and KUB) - IN HOUSE 2 018-11-23 PROCEDURES Procedure Date Ordered Result Body Site X-RAY EXAM ABDOMEN 2 VIEWS Mar 02, 2018 INSTRUCTIONS MEDICATIONS ADMINISTERED No Known Medications MEDICAL (GENERAL) HISTORY Type Description Date Surgical History Tubal Ligation 1999
--- OUTSIDE RECORDS SUMMARY | 2019-10-18 11:37 | XMS REPORT ---
Author Author Georgie SALMON Organization [facility] Address [address] [place] [address] Care Team Providers Care Senior Graduate Advisor Name Role Phone FABIOLA SALMON Unavailable PROBLEMS Type Condition ICD9-CM Code [id number] Code Onset Dates Condition S tatus SNOMED Code Problem Acute constipation K59.00 Active 1 [id number] ALLERGIES No Information ENCOUNTERS Encounter Location Date Diagnosis [facility] [id number] [place] [address] May, Dental abscess K04.7 [facility] [address] [id number] [address] [place] [address] Feb, Acute constipation K59.00 [facility] [address] [address] Sep, Strain of lumbar region, initial encount er S39.012A [facility] [address] [id number] [address] [place] [address] Nov, Dysuria R30.0 and Acute cyst itis N30.[address] [address] May, Acute non-recurrent maxillary sinusitis J01.[address] [address] Jul, [place] [address] [address] Jul, [place] [address] [address] Apr, [place] [address] [address] Apr, [facility] [address] [facility] [id number] [place] [address] Oct, [facility] [address] [facility] [id number] [place] [address] Oct, [facility] [address] [id number] [place] [address] Sep, [facility] [address] [id number] [place] [address] Sep, [facility] [address] [facility] [id number] [place] [address] August, [facility] [address] [id number] [place] [address] August, [facility] [address] [id number] [place] [address] Jul, [facility] [address] [id number] [place] [address] Jul, [facility] [address] [id number] [place] [address] Oct, [facility] [address] [id number] [place] [address] Oct, [facility] [address] [id number] [place] [address] August, [facility] [address] [id number] [place] [address] August, [facility] [address] [id number] [place] [address] Jul, [facility] [address] [id number] [place] [address] Jun, [facility] [address] [id number] [place] [address] Jun, [facility] [address] [id number] [place] [address] Jul, [facility] [address] [id number] [place] [address] Mar, [facility] [address] [id number] [place] [address] Feb, [facility] [address] [id number] [place] [address] Feb, [facility] [address] [id number] [place] [address] Feb, [facility] [address] [id number] [place] [address] Jan, [facility] [address] [id number] [place] [address] Jan, [facility] [address] [id number] [place] [address] Nov, [facility] [address] [id number] [place] [address] Sep, IMMUNIZATIONS No Known Immunizations SOCIAL HISTORY Never Assessed REASON FOR VISIT PLAN OF CARE VITAL SIGNS MEDICATIONS No Known Medications RESULTS No Results PROCEDURES No Known procedures INSTRUCTIONS MEDICATIONS ADMINISTERED No Known Medications MEDICAL (GENERAL) HISTORY Type Description Date Surgical History Tubal Ligation 1999
--- OUTSIDE RECORDS SUMMARY | 2019-10-18 11:37 | XMS REPORT ---
Author Author Georgie Gage Doctor Organization [facility] Address Unknown Phone Unavailable Care Team Providers Care Electrical Instrument Technician Name Role Phone Migration, Doctor Unavailable Unavailable PROBLEMS Type Condition ICD9-CM Code TKC14-OT Code Onset Dates Condition S tatus SNOMED Code Problem Acute constipation K59.00 Active 1 [id number] ALLERGIES No Information ENCOUNTERS Encounter Location Date Diagnosis [facility] [address] [facility] [id number] [address] [place] [address] Feb, Acute constipation K59.00 [facility] [address] [facility] [id number] [address] [place] [address] Sep, Strain of lumbar region, ini tial encounter S39.012A [facility] [address] [facility] [id number] [address] [place] [address] Nov, Dysuria R30.0 and Acute cyst itis N30.00 [facility] [address] [id number] [address] [place] [address] May, Acute non-recurrent maxillar y sinusitis J01.00 [facility] [address] [facility] [id number] [address] [place] [address] Jul, [facility] [address] [facility] [id number] [address] [place] [address] Jul, [facility] [address] [facility] [id number] [address] [place] [address] Apr, [facility] [address] [id number] [address] [place] [address] Apr, [facility] [address] [id number] [address] [place] [address] Oct, [facility] [address] [id number] [address] [place] [address] [place] [address] Oct, [facility] [address] [id number] [address] [place] [address], [place] [address] Sep, [facility] [address] [id number] [address] [place] [address], [place] [address] Sep, [facility] [address] [id number] [address] [place] [address], [place] [address] August, [facility] [address] [id number] [address] [place] [address], [place] [address] August, [facility] [address] [id number] [address] [place] [address], [place] [address] Jul, [facility] [address] [id number] [address] [place] [address], [place] [address] Jul, [facility] [address] [id number] [address] [place] [address], [place] [address] Oct, [facility] [address] [id number] [address] [place] [address], [place] [address] Oct, [facility] [address] [id number] [address] [place] [address], [place] [address] August, [facility] [address] [id number] [address] [place] [address], [place] [address] August, [facility] [address] [id number] [address] [place] [address], [place] [address] Jul, [facility] [address] [id number] [address] [place] [address], [place] [address] Jun, [facility] [address] [id number] [address] [place] [address], [place] [address] Jun, [facility] [address] [id number] [address] [place] [address], [place] [address] Jul, [facility] [address] [id number] [address] [place] [address], [place] [address] Mar, [facility] [address] [id number] [address] [place] [address] Feb, [facility] [address] [id number] [address] [place] [address] Feb, [facility] [address] [id number] [address] [place] [address] Feb, [facility] [address] [id number] [address] [place] [address] Jan, [facility] [address] [id number] [address] [place] [address] Jan, [facility] [address] [id number] [address] [place] [address] Nov, [facility] [address] [id number] [address] [place] [address] Sep, IMMUNIZATIONS No Known Immunizations SOCIAL HISTORY Never Assessed REASON FOR VISIT [facility] PLAN OF CARE VITAL SIGNS MEDICATIONS No Known Medications RESULTS No Results PROCEDURES No Known procedures INSTRUCTIONS MEDICATIONS ADMINISTERED No Known Medications MEDICAL (GENERAL) HISTORY Type Description Date Surgical History Tubal Ligation 1999
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
[2019-10-18] MEDS ORDERED: ceFAZolin 2 GM IV Premixed 50 ML IV ONE (11:45)
[2019-10-18] MEDS ORDERED: HYDROmorphone 2 MG/ML VIAL (DILAUDID) ONE (12:22)
[2019-10-18] MEDS ORDERED: LIDOCAINE PF 2% 5 ML (XYLOCAINE) VIAL ONE (12:49)
[2019-10-18] MEDS ORDERED: GLYCOPYRROLATE 0.2 MG/ML (ROBINUL) 2 ML VIAL ONE (12:49)
[2019-10-18] MEDS ORDERED: NEOSTIGMINE 3 MG/3 ML VIAL ONE (12:49)
[2019-10-18] MEDS ORDERED: SEVOFLURANE (ULTANE) 15 ML INHAL SOLN ONE ×6 (12:49→14:34)
[2019-10-18] MEDS ORDERED: DEXAMETHASONE 10 MG/ML (DECADRON) 1 ML VIAL ONE (12:49)
[2019-10-18] MEDS ORDERED: proPOfol 200 MG/20 ML (DIPRIVAN) VIAL IV ONE (12:49)
[2019-10-18] MEDS ORDERED: ROCURONIUM 10 MG/ML 5 ML SYRINGE IV ONE (12:49)
--- OUTSIDE RECORDS SUMMARY | 2019-10-18 12:53 | XMS REPORT ---
Author Author [employer] senior qa tester [facility] Address [address] [address] Care Team Providers Care Printing Plate Setter Name Role Phone CELENA SIBLEY Unavailable NO, LOCAL PHYSICIAN Unavailable Unavailable CELENA SIBLEY Unavailable CELENA SIBLEY Unavailable EMMANUEL HAEL Unavailable MARYJO CELENA A Unavailable DEBORAH NICOLE Unavailable DEBORAH GARCIA Unavailable Migration, Doctor Unavailable Unavailable Migration, Doctor [...] HOFFMANN V [facility] 10-18-2019 patient visit [facility] Start: [facility] Periapical abscess LAURO Vargas [facility] 05-30-2019 CARE without sinus CARE Start: [facility] Jonh, DEBORAH GARCIA [facility] 03-02-2018 CARE unspecified CARE End: 03-02-2018 Start: Patient encounter NONE PCP [facility] 03-02-2018 procedure [facility] ([id number]) Start: Patient encounter NONE PCP [facility] 09-12-2017 procedure [facility] ([id number]) Start: Patient encounter NA NA Not Availab le ([id number]) 09-09-2017 procedure Start: Emergency department HADLEY MESSINA MD Not Available ([id number]) 06-24-2013 patient visit End: 06-24-2013 Start: Emergency department HADLEY MESSINA MD Not Available ([id number]) 05-06-2013 patient visit End: 05-06-2013 Medical Equipment [...] Ora lly Once a day 1 packet 84612 mg powder for oral Laxative mixed with 8 ounces of fluid 24h 30 solution day(s) Active (1 source) sennosides, mcc 15 mg take 1 tablet Ex-Lax 15 [...] Section Referrals CELENA SIBLEY DO - P [facility] Physician Additional Instructions/Education Al l [...] DO Order Date: Primary Care Physician Address: [address] [place] [id number] Additional Instructions/Education Al l discharge instructions reviewed with patient and/or family. Voiced understanding. Take medications as directed. Follow-up with your doctor early this week for recheck and further evaluation including possibility of imaging as indicated. You may use [id number] lidocaine patch to area of concern as [...] ENNAN jaw K04.7] Other Phone: (3 sources) [phone] 3 E Codes: Overexertion from strenuous Episodic [...] [Acute constipation] TORCHIA inal Other Phone: disorders [phone] (10 sources) 3 Other Constipation, unspecified ; Episodic DEBORAH gastrointest Translations: [ - Acute TORCHIA inal constipation K59.00] Other Phone: disorders [phone] (10 sources) 3 Other Other injury of [...] row ty Laboratory studies Health (set) [facility] ([id number]) laboratory on 2019-10-18 Albumin [Mass/Vol] 4.1 g/dL Negative 3.2-4.5 PENDING 10-08 0-2 g/dL LOCATIO 020 N [facility] 03:20-0 ([id number]) 400 ALP [Catalytic 90 U/L Negative 40-136 U/L PENDING 07-10-2 activity/Vol] LOCATIO 020 [facility] 03:20-0 ([id number]) 400 ALT [Catalytic 15 U/L Negative 0-55 U/L PENDING activity/Vol] LOCATIO 020 [facility] 03:20-0 ([id number]) 400 Anion gap 13 mmol/L Negative 5-14 PENDING [Moles/Vol] mmol/L LOCATIO 020 [facility] 03:20-0 ([id number]) 400 AST [Catalytic 12 U/L Negative 5-34 U/L PENDING activity/Vol] LOCATIO 020 N [facility] 03:20-0 ([id number]) 400 Bacteria LM Ql FEW Abnormal PENDING (Urine sed) LOCATIO 020 [facility] 03:15-0 ([id number]) 400 Band form 8 % Invalid % PENDING neutrophils/100 WBC Interpreta LOCATIO 020 (Bld) tion Code N [facility] 03:20-0 ([id number]) 400 Basophils (Bld) 0.0 10*3/uL Negative 0.0-0.1 PENDING 10-17 [#/Vol] 10*3/uL LOCATIO 020 [facility] 03:20-0 ([id number]) 400 Basophils/100 WBC 0 % Negative PENDING (Bld) LOCATIO 020 [facility] 03:20-0 ([id number]) 400 Bilirubin [Mass/Vol] 0.5 mg/dL Negative 0.1-1.0 PENDING mg/dL LOCATIO 020 [facility] 03:20-0 ([id number]) 400 Bilirubin Ql (U) Negative Invalid NEGATIVE PENDING Interpreta LOCATIO 020 tion Code N [facility] 03:15-0 ([id number]) 400 Calcium [Mass/Vol] 10.2 mg/dL High 8.5-10.1 PENDING - mg/dL LOCATIO 020 [facility] 03:20-0 ([id number]) 400 Calcium [Mass/Vol] 10.1 mg/dL Negative 8.5-10.1 PENDING 01-09 mg/dL LOCATIO 020 [facility] 03:20-0 ([id number]) 400 Casts LM Ql (Urine NONE Invalid PENDING sed) Interpreta LOCATIO 020 tion Code N [facility] 03:15-0 ([id number]) 400 Chloride [Moles/Vol] 100 mmol/L Negative 98-107 PENDING 0 -10-2 mmol/L LOCATIO 020 N [facility] 03:20-0 ([id number]) 400 Clarity (U) CLEAR Invalid PENDING Interpreta LOCATIO 020 tion Code N [facility] 03:15-0 ([id number]) 400 CO2 [Moles/Vol] 17 mmol/L Low 21-32 PENDING mmol/L LOCATIO 020 N [facility] 03:20-0 ([id number]) 400 Color (U) YELLOW Invalid PENDING Interpreta LOCATIO 020 tion Code N [facility] 03:15-0 ([id number]) 400 Creatinine 0.84 mg/dL Negative 0.60-1.30 PENDING [Mass/Vol] mg/dL LOCATIO 020 [facility] 03:20-0 ([id number]) 400 Creatinine and > Invalid PENDING Glomerular Interpreta LOCATIO 020 filtration tion Code [facility] 03:20-0 rate.predicted panel ([id number]) 400 - Serum, Plasma or Blood CRP [Mass/Vol] 48.25 High 0.00-0.50 PENDING mg/dL LOCATIO 020 [facility] 03:20-0 ([id number]) 400 Crystals LM Ql NONE Invalid PENDING (Urine sed) Interpreta LOCATIO 020 tion Code [facility] 03:15-0 ([id number]) 400 Eosinophils (Bld) 0.0 10*3/uL Negative 0.0-0.3 PENDING 01-09 [#/Vol] 10*3/uL LOCATIO 020 [facility] 03:20-0 ([id number]) 400 Eosinophils/100 WBC 0 % Negative 0-10 % PENDING 01-09 (Bld) LOCATIO 020 N [facility] 03:20-0 ([id number]) 400 Eosinophils/100 WBC 0 % Invalid % PENDING 01-09 (Nose) Interpreta LOCATIO 020 tion Code [facility] 03:20-0 ([id number]) 400 Epithelial 5-10 Invalid PENDING cells.squamous LM Ql Interpreta LOCATIO 020 (Urine sed) tion Code N [facility] 03:15-0 ([id number]) 400 Erythrocyte 13.4 % Negative 10.0-14.5 PENDING distribution width % LOCATIO 020 (RBC) [Ratio] N [facility] 03:20-0 ([id number]) 400 Glucose [Mass/Vol] 113 mg/dL High 70-105 PENDING - 0-2 mg/dL LOCATIO 020 [facility] 03:20-0 ([id number]) 400 Glucose Auto test Negative Invalid NEGATIVE PENDING 10-17 strip Ql (U) Interpreta LOCATIO 020 tion Code N [facility] 03:15-0 ([id number]) 400 Hematocrit (Bld) 46 % Negative 35-52 % PENDING [Volume fraction] LOCATIO 020 [facility] 03:20-0 ([id number]) 400 Hemoglobin (Bld) 15.9 g/dL Negative 11.5-16.0 PENDING [Mass/Vol] g/dL LOCATIO 020 N [facility] 03:20-0 ([id number]) 400 Ketones Auto test TRACE Abnormal NEGATIVE PENDING 10-17 strip Ql (U) LOCATIO 020 [facility] 03:15-0 (20694) 400 Leukocyte esterase Negative Invalid NEGATIVE PENDING 10-08 0-2 Test strip Ql (U) Interpreta LOCATIO 020 tion Code N [facility] 03:15-0 (35491) 400 Lipase [Catalytic U/L Low 8-78 U/L PENDING 10-17 activity/Vol] LOCATIO 020 N [facility] 03:20-0 ([id number]) 400 Lymphocytes (Bld) 1.3 10*3/uL Negative 1.0-4.0 PENDING 01-09 [#/Vol] 10*3 LOCATIO 020 [facility] 03:20-0 (10907) 400 Lymphocytes/100 WBC 6 % Low 12-44 % PENDING 01-09 (Bld) LOCATIO 020 [facility] 03:20-0 ([id number]) 400 Lymphocytes/100 WBC 8 % Invalid % PENDING 01-09 (Bld) Interpreta LOCATIO 020 tion Code N [facility] 03:20-0 (51743) 400 MCH (RBC) [Entitic 31 pg Negative 25-34 pg PENDING - 0-2 mass] LOCATIO 020 [facility] 03:20-0 ([id number]) 400 MCHC (RBC) 35 g/dL Negative 32-36 g/dL PENDING [Mass/Vol] LOCATIO 020 [facility] 03:20-0 ([id number]) 400 MCV (RBC) [Entitic 87 Negative 80-99 PENDING 07-1 0-2 vol] [foz_us] LOCATIO 020 [facility] 03:20-0 ([id number]) 400 Monocytes (Bld) 0.7 10*3/uL Negative 0.0-1.0 PENDING 10-17 [#/Vol] 10*3 LOCATIO 020 [facility] 03:20-0 (72027) 400 Monocytes/100 WBC 3 % Negative 0-12 % PENDING 10-17 (Bld) LOCATIO 020 [facility] 03:20-0 (63804) 400 Monocytes/100 WBC 2 % Invalid % PENDING 10-17 (Bld) Interpreta LOCATIO 020 tion Code [facility] 03:20-0 ([id number]) 400 Mucus Ql (Urine sed) Negative Invalid PENDING 10-17 Interpreta LOCATIO 020 tion Code [facility] 03:15-0 ([id number]) 400 Neutrophils (Bld) 18.7 10*3/uL High 1.8-7.8 PENDING [#/Vol] 10*3 LOCATIO 020 [facility] 03:20-0 (21331) 400 Neutrophils/100 WBC 91 % High 42-75 % PENDING 01-09 (Bld) LOCATIO 020 [facility] 03:20-0 (45506) 400 Nitrite Ql (U) Negative Invalid NEGATIVE PENDING Interpreta LOCATIO 020 tion Code [facility] 03:15-0 ([id number]) 400 pH (U) 6.0 [pH] Invalid 5-9 PENDING Interpreta LOCATIO 020 tion Code [facility] 03:15-0 (70627) 400 Platelet mean volume 11.2 High 7.4-10.4 PENDING (Bld) [Entitic vol] [foz_us] LOCATIO 020 [facility] 03:20-0 (34796) 400 Platelets (Bld) 201 10*3/uL Negative 130-400 PENDING 10-17 [#/Vol] 10*3/uL LOCATIO 020 [facility] 03:20-0 (67096) 400 Potassium 3.8 mmol/L Negative 3.6-5.0 PENDING [Moles/Vol] mmol/L LOCATIO 020 [facility] 03:20-0 (76325) 400 Protein [Mass/Vol] 8.0 g/dL Negative 6.4-8.2 PENDING - 0-2 g/dL LOCATIO 020 [facility] 03:20-0 (20510) 400 Protein Ql (U) 1+ Abnormal NEGATIVE PENDING LOCATIO 020 [facility] 03:15-0 (74198) 400 RBC (Bld) [#/Vol] 5.22 10*6/uL Negative 4.35-5.85 PENDING 10*6/uL LOCATIO 020 [facility] 03:20-0 (05505) 400 RBC LM.HPF (Urine Invalid [HPF] PENDING sed) [#/Area] Interpreta LOCATIO 020 tion Code [facility] 03:15-0 (76085) 400 RBC morphology NORMAL Invalid PENDING finding Nom (Bld) Interpreta LOCATIO 020 tion Code [facility] 03:20-0 (07469) 400 RBC Ql (U) 3+ Abnormal NEGATIVE PENDING LOCATIO 020 [facility] 03:15-0 (67642) 400 Segmented 82 % Invalid % PENDING neutrophils/100 WBC Interpreta LOCATIO 020 (Bld) tion Code N [facility] 03:20-0 (49167) 400 Sodium [Moles/Vol] 130 mmol/L Low 135-145 PENDING 01-09 mmol/L LOCATIO 020 [facility] 03:20-0 (29443) 400 Specific gravity (U) <= Invalid 1.016-1.02 PENDING 0 [Rel density] Interpreta 2 LOCATIO 020 tion Code N [facility] 03:15-0 ([id number]) 400 Urea nitrogen 9 mg/dL Negative 7-18 mg/dL PENDING [Mass/Vol] LOCATIO 020 N [facility] 03:20-0 (85189) 400 Urea 11 mg/mg Invalid PENDING nitrogen/Creatinine Interpreta LOCATIO 020 [Mass ratio] tion Code N [facility] 03:20-0 (80044) 400 Urinalysis complete NO Invalid PENDING W Reflex Culture Interpreta LOCATIO 020 panel - Urine tion Code N [facility] 03:15-0 (08742) 400 Urobilinogen (U) 0.2 mg/dL Invalid < = 1.0 PENDING [Mass/Vol] Interpreta mg/dL LOCATIO 020 tion Code N [facility] 03:15-0 (01132) 400 WBC (Bld) [#/Vol] 20.6 10*3/uL High 4.3-11.0 PENDING 10*3/uL LOCATIO 020 N [facility] 03:20-0 (16439) 400 WBC LM.HPF (Urine Invalid [HPF] PENDING sed) [#/Area] Interpreta LOCATIO 020 tion Code N [facility] 03:15-0 (68944) 400 Social History The data below is from unstructured sources History Response Recorde d Date/Time Alcohol Use Denies Use 0 08/27/12 3:59pm Recreational Drug Use N 08/27/12 3:59pm Vital Signs Date Time Vital Sign Value Performing Clinician Facil ity 03-02-2018 Body height 167.64 cm [facility] 12: Other Phone: [facility] [place] [id number]) 03-02-2018 Body mass index 30.66 kg/m2 DEBORAH GARCIA [facility] 12:30-050 (BMI) [Ratio] Other Phone: [facility] [place] ([id number]) 03-02-2018 Body temperature 97.9 [degF] DEBORAH GARCIA [facility] 12:30-0500 Other Phone: [facility] [place] ([id number]) 03-02-2018 [facility] 86.18 [facility] 12:30-[facility] Other Phone: [facility] [place] ([id number]) 04-21-2014 Body height 167.64 cm ODALYS SANCHEZ [facility] 13:45-0500 Other Phone: [facility] ([id number]) 04-21-2014 Body temperature 98 [degF] ODALYS SANCHEZ [facility] 13:45-0500 Other Phone: [facility] [place] ([id number]) 04-21-2014 Body weight 70.67 kg ODALYS SANCHEZ [facility] [employer], 13:45-0500 Other Phone: [facility] [place] ([id number]) 09-09-2013 Body height 167.[address] [facility] 10:38-0400 Other Phone: [facility] [place] ([id number]) 09-09-2013 Body temperature 98.4 [degF] [facility] 10:38-0400 Other Phone: [facility] [place] ([id number]) 09-09-2013 Body weight [address] [facility] 10:38-0400 Other Phone: [facility] [place] () 10-13-2012 Body height 167.[address] [facility] 11:21-0400 Other Phone: [facility] [place] ([id number]) 10-13-2012 Body temperature 97.8 [degF] [facility] [id number]:210400 Other Phone: [facility] ([id number]) 10-13-2012 Body weight [address] [facility] 11:210400 Other Phone: [facility] [place] () Functional Status The data below is from unstructured sourcesNo functional status results.No functional status results.No functional status results.No functional status results.No functional status results.No functional status information available.No functional status information available. Mental Status No Information Advance Directives Directive Response Recor ded Date/Time Advance Directives No 10:45am Health Care Power of Hat Brusher Machine No 09/20/15 10:45am Organ Donor No 09/20/15 10:45am Resuscitation Status Full Code 09/20/15 10:45am Directive Response Recor ded Date/Time Advance Directives No 3:47am Organ Donor No 06/24/13 3:47am Directive Response Recor ded Date Advance Directives N 3:59pm Organ Donor Y 08/27/12 3 :59pm Directive Response Recor ded Date/Time Advance Directives No 11:45am Health Care Power of Hat Brusher Machine No 09/01/14 11:45am Organ Donor No 09/01/14 11:45am Resuscitation Status Full Code 09/01/14 11:45am Directive Response Recor ded Date/Time Advance Directives No 8:17pm Health Care Power of Hat Brusher Machine No 09/09/17 8:17pm Organ Donor No 09/09/17 8:17pm Resuscitation Status Full Code 09/09/17 8:17pm Discharge Instructions No hospital discharge instructions.No hospital discharge instructions.No hospital discharge instructions.No hospital discharge instruction information available. Additional Source Comments This clinical document has been generated using [employer] software that has been certified by the Office of the National Coordinator for Health Information Technology (ONC 15.99.04.3023.Diam.31.00.0.738153) and the National Committee for Paraprofessional Interpreter (NCQA, as an eMeasure certified technology). FOR [...] BASED ON T HE PRIMARY CLINICAL RECORDS. [email or web address] provides no warranty or guara ntee of the accuracy or completeness of information in this document.The followi ng information is based on time limited clinical information UNRECOGNIZED CONTENT PROVIDED BELOW FOR UNRECOGNIZED SECTION REASON FOR VISIT Constipation for the past week. last BM was 5 days ago et small. maddie, pt reports minimal passing of euxAUZ-EypIYF-FtoUSL-Ignacio
--- OUTSIDE RECORDS SUMMARY | 2019-10-18 12:54 | XMS REPORT | Continuity of Care Document ---
Author Organization Unknown Address Unknown Phone Unavailable Allergies Active Description Code Type Severity Reaction Onset Reported/Identified Relationship to Patient Clinical Status Yes asprin OA N/A N/A 09/26/2009 Yes ibuprofen Drug Allergy N/A N/A 09/26/2009 Yes asprin OA 09/26/2009 Yes ibuprofen Drug Allergy 09/26/2009 Yes aspirin [id number] Drug Allergy Severe HIVES 02/06/2012 Yes ibuprofen [id number] Drug Allergy Severe HIVES 02/06/2012 Yes cyclobenzaprine [id number] D rug Allergy Moderate N/A 09/01/2014 Yes naproxen sodium [id number] D rug Allergy Unknown N/A 09/01/2014 Medications [...] Casey Ot 721.3 09/03/2014 GELLENDER DO, CELENA Casye Ot E000.8 09/03/2014 GELLENDER DO, CELENA Casey [...] (PRIVATE) HOUSE 09/22/2015 EVELYN EDMONDS MD Ot Y99 .8 OTHER EXTERNAL CAUSE [...] STATUS TO ANALGESIC AGENT STATUS 09/09/2017 HADLEY MESISNA MD Ot Z88.8 ALLERGY STATUS TO OTH [...] ALLERGY STATUS TO ANALGESIC AGENT STATUS 09/11/2017 HADLYE MESSINA MD Ot Z88.8 ALLERGY STATUS TO OTH DRUG/MEDS/BIOL SUB 09/11/2017 HADLEY MESSINA MD Ot Z98.51 TUBAL LIGATION STATUS Procedures Code Description [place] [address] UA W / CULTURE IF INDICATED 04/21/2014 [...] Status Pt. Type Provider Facility Loc./Unit Complaint [id number] 04/21/2014 13:45:00 04/21/2014 23:59: 59 CLS Outpatient ODALYS SANCHEZ APRN [id number] 09/09/2013 08:38:00 09/09/2013 23:59: 59 CLS Outpatient FABIOLA SALMON APRN [id number] 10/13/2012 10:21:00 10/13/2012 23:59: 59 CLS Outpatient FABIOLA SALMON APRN [id number] 06/20/2012 14:31:00 06/20/2012 23:59: 59 CLS Outpatient FABIOLA SALMON APRN [id number] 02/01/2010 16:44:00 02/01/2010 23:59: 59 CLS Outpatient [id number] 03/02/2018 11:30:00 03/02/2018 23:59:5 9 CLS Outpatient [facility] [id number] 09/09/2017 19:45:00 018 22:56:00 DIS Emergency SIDDHARTH HOFFMANN, HADLEY Sandhu [facility] [place] [facility] BACK PAIN/WORK COMP [id number] 09/20/2015 10:35:00 016 12:21:00 DIS Outpatient EVELYN EDMONDS MD [facility] ER [id number] 09/01/2014 10:52:00 015 12:54:00 DIS Emergency CHLOE ESTEVEZ MD [facility] ER [id number] 07/17/2014 15:04:00 015 23:59:59 CLS Outpatient CELENA SIBLEY DO [facility] RAD [id number] 06/24/2013 03:42:00 014 04:17:00 DIS Emergency HADLEY MESSINA MD [facility] ER UPPER BACK PAIN [id number] 05/06/2013 08:44:00 014 09:40:00 DIS Emergency HADLEY MESSINA MD [facility] ER BACK PAIN [id number] 08/27/2012 15:43:00 013 16:30:00 DIS Emergency LARA LAUREN MD [facility] ER RT SIDE LEG PAIN [id number] 10/18/2019 07:32:00 Document Registration [id number] 06/18/2014 08:58:00 Document Registration [id number] 06/09/2012 08:56:00 Document Registration [id number] 02/06/2012 15:38:00 Document Registration
[2019-10-18] MEDS ORDERED: GLUCAGON EMERGENCY 1 MG/KIT ONE (13:21)
--- NOTE | 2019-10-18 13:57 | Diagnostic Imaging Report ---
INDICATION: Right. TECHNIQUE: Multiple serial intraprocedural images laparoscopic cholangiogram FINDINGS/ IMPRESSION: The hospital radiology department provided fluoroscopic imaging for the clinical service in support of an interventional procedure. A radiologist was not involved in the procedure. Please reference the operating provider's procedure note. Fluoroscopy Time: 32.3 seconds Intraoperative cine imaging demonstrates cannulation of the extrahepatic biliary tree and injection of contrast through the cystic duct. There is a normal caliber about the visualized common bile duct. There is a persistent, rounded filling defect low common bile duct which migrates to the level of the ampulla. There is absence of any significant free flow contrast into the duodenum on this study. This does raise concern for presence of choledocholithiasis. Correlation with intraoperative views recommended. Dictated by: Dictated on workstation # [id number]
[2019-10-18] MEDS ORDERED: morphine INJ 10 MG/ML 1ML (SYR OR VIAL) IVP ONE (15:30)
[2019-10-18] MEDS ORDERED: HYDROmorphone 2 MG/ML VIAL (DILAUDID) IV ONE (15:30)
[2019-10-18] MEDS ORDERED: ONDANSETRON 4 MG/2 ML (SDV) Z0FRAN IVP PRN (15:30)
--- NOTE | 2019-10-18 15:30 | Anesthesia-General Post-Op ---
General Patient Condition Mental Status/LOC: Same as Preop Cardiovascular: Satisfactory Nausea/Vomiting: Absent Respiratory: Satisfactory Pain: Controlled Complications: Absent Post Op Complications Complications None Follow Up Care/Instructions Patient Instructions None needed. Anesthesia/Patient Condition Patient Condition Patient is awake in PACU and doing well, no complaints, stable vital signs, no apparent adverse anesthesia problems. NAYLA OSHEA DO Oct 18, 2019 15:30
--- NOTE | 2019-10-18 15:55 | NUR ---
Received pt in room. Report taken by Elana morales. pt is stable and able to answere questions for admission.
--- NOTE | 2019-10-18 16:00 | NUR ---
PATIENT ALERT, IV SITE WITHOUT REDNESS OR SWELLING, ICE PACK TO ABD, LAP SITE TIMES 4 WITHOUT BLEEDING, FRANCA DRAIN PATENT WITH BLOODY DRAINAGE, NO C/O PAIN AT THIS TIME, CALL LIGHT WITHIN REACH.
--- NOTE | 2019-10-18 16:15 | NUR ---
DR AGUILAR CALLED TO CLARIFY TRANSFER TO [facility], WILL BE TRANSFERRED TO ROOM 387 FOR ERCP AND WILL STAY AT [facility]
--- NOTE | 2019-10-18 16:24 | NUR ---
REPORT CALLED TO FLORIN LA AT [facility].
--- NOTE | 2019-10-18 16:26 | Progress Note-Post Operative ---
Post-Operative Progess Note Surgeon (s)/Seed Cone Picker (s) Surgeon AUGUSTIN AGUILAR DO Seed Cone Picker: na Pre-Operative Diagnosis ruq abd pain, gallstones, cholecystitis Post-Operative Diagnosis acute cholecystitis, choledocholithiasis Procedure & Operative Findings Date of Procedure 10/18/19 Procedure Performed/Findings PROCEDURE: Laparoscopic cholecystectomy with intraoperative cholangiogram. COMPLICATIONS: None. PROCEDURE: The patient was taken to the operating suite and was prepped and draped in sterile fashion. A surgical pause was performed. Just superior to the umbilicus, a 12 mm incision was made. Dissection was taken down to the fascia, which was then scored and grasped with a Samra and the abdomen was then entered. A 0 Vicryl suture was placed in a [id number]-pq-[id number] fashion and a Fletcher trocar was placed and secured. Pneumoperitoneum was achieved. A 5mm trochar place in the subxyphoid and 2 in the right upper quadrant. The gallbladder has significant inflammation, distended, and large phlegmon around gallbladder. The gallbladder was decompressed partially using cautery and suction. The gallbladder was then grasped and elevated. Adhesions were then taken down with blunt and cuatery dissection. The cystic duct, and cystic artery were then dissected out. Clip was placed on the distal portion of the cystic duct which was then partially transected. An arrow catheter was inserted into the duct. The cholangiogram was then performed. Filling defects and contrast were present in the distal portion of common bile duct. Glucagon was given and flushed again through the arrow catheter and repeated but stones were unable to be flushed. Catheter removed. Clips were placed on proximal portion of the cystic duct and then the duct was then transected. Clips were placed along the proximal and distal portion of the cystic artery which was then transected. Hook cautery was used to dissect the gallbladder from the gallbladder fossa achieving hemostasis. The gallbladder was placed in an Endobag and removed through the 12 mm trocar site. The abdomen was then reinspected. A [address] in the gallbladder fossa and brought out through a 5 mm trochar site and secured with nylon. Copious amounts of irrigation were used to irrigate the abdomen and there were no signs of active bleeding. Hemostasis had been achieved. The 12 mm fascial defect was then closed with 0 Vicryl suture that had been placed in a gwtpts-pd-nsbqb fashion. The abdomen was then desufflated, the trocars were removed. The abdomen was then washed and dried. The skin was then closed using 4-0 Monocryl in a subcuticular fashion. The abdomen was washed and dried and Skin Affix was place over incisions. Patient tolerated the procedure well without any complications and was taken to the recovery room in stable condition. Arranged for transfer for ERCP to be performed. Anesthesia Type general Estimated Blood Loss Estimated blood loss (mL): 50 mL Specimens/Packing Specimens Removed gallbladder AUGUSTIN AGUILAR DO Oct 18, 2019 16:26
--- NOTE | 2019-10-18 16:30 | NUR ---
NOTIFIED OF TRANSFER TO [facility]
== END 2019-10-18 17:25 | disposition short-term general hospital (02) ==
LOC: EDUNIT# 07:09 → ER 07:10 → SDC 10:28 → 4TH 15:55 → SDC 17:25
PROVIDERS: ATTEND Surgery
DX: K80.42 Calculus of bile duct with acute cholecystitis without obstruction (principal); F17.210 Nicotine dependence, cigarettes, uncomplicated; Z20.828 Contact with and (suspected) exposure to other viral communicable diseases
CPT/HCPCS: 47563; 76000; 76705; 80053; 81000; 83690; 84703; 85007; 85027; 86141; 87081; 99284; U0002; 36415; 87635; 88304; 96361; 96374; 96375; 96376